=== PATIENT | male | born 1965 | race African-American/Black ===

== ENCOUNTER → 2016-12-14 | Outpatient (CLI) | payer MEDICAID ==
[~2016-12-14] MED LIST: ACET-711 PO; AMLO10TA2 PO; AMOX1TAB64 PO; ASPI-496 PO; DICL75TA2 PO; GLYB5TAB3 PO; INSU100V5 SQ; LISI40TA PO; LORA10TA3 PO; MEGA D3 PO; METH4TAB2 PO; MV M PO; OXYC-302 PO; OXYC10TA6 PO; PANT40TA5 PO; PIOG15TA2 PO; POTA99TA3 PO; POTASSIUM OTC PO; ROSU10TA PO; UBIQ75CA PO; WARF10TA PO
== END | disposition home or self-care (01) ==
LOC: CFH 14:20
PROVIDERS: ATTEND Nurse Practitioner Primary Care
DX: E04.1 Nontoxic single thyroid nodule (principal)
CPT/HCPCS: 76536

== ENCOUNTER → 2018-01-08 | Outpatient (CLI) | payer MEDICAID ==
[~2018-01-08] MED LIST changes: -MV M PO; +MV-M1TAB34 PO; -PIOG15TA2 PO; +PIOG15TA3 PO
== END | disposition home or self-care (01) ==
LOC: CVU 11:03
PROVIDERS: ATTEND Internal Medicine Cardiovascular Disease
DX: I77.812 Thoracoabdominal aortic ectasia (principal); I51.7 Cardiomegaly; Z95.2 Presence of prosthetic heart valve
CPT/HCPCS: 93306

== ENCOUNTER → 2018-01-09 | Outpatient (CLI) | payer MEDICAID ==
[~2018-01-09] MED LIST changes: +REGADENOSON 0.4 MG/5 ML SYRINGE ONE
== END | disposition home or self-care (01) ==
LOC: CFH 12:18
PROVIDERS: ATTEND Internal Medicine Cardiovascular Disease
DX: Z02.9 Encounter for administrative examinations, unspecified (principal)
CPT/HCPCS: J2785

== ENCOUNTER 2018-04-01 23:46 | Emergency (ER) | payer MEDICAID ==
[~2018-04-01] VITALS: Ht 188 cm; Wt 115.0 kg
[~2018-04-01 23:46] MED LIST changes: -PIOG15TA3 PO; +PIOG15TA66 PO; -REGADENOSON 0.4 MG/5 ML SYRINGE ONE
[2018-04-02] MEDS ORDERED: LORazepam 2 MG/ML, 1ML ONE ×2 (00:57→02:08)
[2018-04-02] MEDS ORDERED: LORazepam 2 MG/ML, 1ML IM ONE ×2 (01:00→02:30)
[2018-04-02 02:27] VITALS: BP 158/91
== END 2018-04-02 02:29 | disposition home or self-care (01) ==
LOC: ED 23:59
DX: R11.2 Nausea with vomiting, unspecified (principal); T50.995A Adverse effect of other drugs, medicaments and biological substances, initial encounter; I11.9 Hypertensive heart disease without heart failure; I25.10 Atherosclerotic heart disease of native coronary artery without angina pectoris; E11.9 Type 2 diabetes mellitus without complications; R42 Dizziness and giddiness; Z87.891 Personal history of nicotine dependence; Z85.038 Personal history of other malignant neoplasm of large intestine; Y92.89 Other specified places as the place of occurrence of the external cause
CPT/HCPCS: 93005; 96372; 99285; J2060

== ENCOUNTER 2018-07-03 16:46 | Emergency (ER) | payer MEDICAID ==
[~2018-07-03] VITALS: Ht 190.5 cm; Wt 133.0 kg
[~2018-07-03 16:46] MED LIST changes: -AMLO10TA2 PO; +AMLO10TA6 PO
[2018-07-03 17:03] VITALS: BP 109/75
[2018-07-03] MEDS ORDERED: HYDROcodone/APAP 5/325 TABLET ONE (17:30)
[2018-07-03] MEDS ORDERED: HYDROcodone/APAP 5/325 TABLET PO ONE (17:30)
[2018-07-03] MEDS ORDERED: OXYcodone/APAP 5/325MG TABLET ONE (17:36)
[2018-07-03] MEDS ORDERED: OXYcodone/APAP 5/325MG TABLET PO ONE (18:00)
[2018-07-03] MEDS ORDERED: COLCHICINE 0.6 MG TABLET ONE (18:04)
[2018-07-03] MEDS ORDERED: COLCHICINE 0.6 MG TABLET PO ONE ×2 (18:30)
[2018-07-03 18:47] LABS: INTERNATIONAL NORMALIZED RATIO 5.98 (0.93-1.1)
[2018-07-03] MEDS ORDERED: PHYTONADIONE 5 MG TABLET PO ONE (19:30)
== END 2018-07-03 20:00 | disposition home or self-care (01) ==
LOC: ED 17:43
DX: S80.12XA Contusion of left lower leg, initial encounter (principal); D65 Disseminated intravascular coagulation [defibrination syndrome]; E11.9 Type 2 diabetes mellitus without complications; I10 Essential (primary) hypertension; K21.9 Gastro-esophageal reflux disease without esophagitis; Z87.891 Personal history of nicotine dependence; X58.XXXA Exposure to other specified factors, initial encounter; Y93.89 Activity, other specified; Y99.8 Other external cause status; Y92.89 Other specified places as the place of occurrence of the external cause
CPT/HCPCS: 36415; 85610; 99285

== ENCOUNTER → 2018-08-06 | Outpatient (CLI) | payer MEDICAID ==
[~2018-08-06] MED LIST changes: +REGADENOSON 0.4 MG/5 ML SYRINGE ONE
== END | disposition home or self-care (01) ==
LOC: CFH 12:11
PROVIDERS: ATTEND Internal Medicine Cardiovascular Disease
DX: I25.89 Other forms of chronic ischemic heart disease (principal); E11.9 Type 2 diabetes mellitus without complications
CPT/HCPCS: 78452; 93017; A9502; J2785

== ENCOUNTER → 2019-02-22 | Outpatient (CLI) | payer MEDICAID ==
[~2019-02-22] MED LIST changes: -AMLO10TA6 PO; +AMLO10TA8 PO; -DICL75TA2 PO; +DICL75TA3 PO; +LORA-247 PO; -LORA10TA3 PO; -REGADENOSON 0.4 MG/5 ML SYRINGE ONE; -ROSU10TA PO; +ROSU10TA2 PO
== END | disposition home or self-care (01) ==
LOC: CVU 15:11
PROVIDERS: ATTEND Internal Medicine Cardiovascular Disease
DX: I34.0 Nonrheumatic mitral (valve) insufficiency (principal); I25.10 Atherosclerotic heart disease of native coronary artery without angina pectoris
CPT/HCPCS: 93306

== ENCOUNTER 2019-03-02 09:44 | Inpatient (IN) | payer MEDICAID ==
[~2019-03-02] VITALS: Ht 190.5 cm; Wt 133.8 kg
[2019-03-02] MEDS ORDERED: SODIUM CHLORIDE FLUSH 10ML SYR IVF ONE ×2 (10:30→11:30)
--- NOTE | 2019-03-02 10:40 | NUR ---
ER RN: PT TO ROOM FROM LOBBY VIA W/C
[2019-03-02 10:56] LABS: BASOPHILS # (AUTO) 0.04 x10^3/uL (0-0.1); BASOPHILS % (AUTO) 0 % (0-1); EOSINOPHILS # (AUTO) 0.22 x10^3/uL (0-0.4); EOSINOPHILS % (AUTO) 3 % (1-7); LYMPHOCYTES % (AUTO) 20 % (22-44); MD NO; MEAN CORPUSCULAR HEMOGLOBIN 30.4 pg (27.5-34.5); MEAN CORPUSCULAR HGB CONC 33.3 g/dL (33.2-36.2); MEAN CORPUSCULAR VOLUME 91.2 fL (81-97); MEAN PLATELET VOLUME 7.5 fL (7.4-10.4); MONOCYTES # (AUTO) 0.67 x10^3/uL (0.2-0.8); MONOCYTES % (AUTO) 8 % (2-9); NEUTROPHILS # (AUTO) 5.96 x10^3/uL (1.8-6.8); NEUTROPHILS % (AUTO) 69 % (42-75); PLATELET COUNT 240 x10^3/uL (130-400); RED BLOOD COUNT 4.44 x10^6/uL (4.38-5.82); RED CELL DISTRIBUTION WIDTH 16.4 % (9.4-14.8)
[2019-03-02 11:05] LABS: INTERNATIONAL NORMALIZED RATIO 1.28 (0.93-1.1); PROTHROMBIN TIME 13.3 Seconds (9.6-11.5)
[2019-03-02 11:06] LABS: ALBUMIN 3.5 g/dL (3.4-5.0); ANION GAP 5 mmol/L (5-15); CALCIUM 8.9 mg/dL (8.5-10.1); CHLORIDE 105 mmol/L (98-107); CREATININE 1.04 mg/dL (0.7-1.3)
[2019-03-02 11:12] LABS: ALANINE AMINOTRANSFERASE 55 U/L (12-78); ALKALINE PHOSPHATASE 146 U/L (45-117); BILIRUBIN,TOTAL 1.1 mg/dL (0.2-1.0); TOTAL PROTEIN 7.4 g/dL (6.4-8.2)
--- NOTE | 2019-03-02 11:20 | NUR ---
PT C/O RUQ PAIN "FOR A WHILE NOW" THAT COMES AND GOES, INCREASES WITH MEALS. GENERALIZED ABDOMINAL TENDERNESS. RESPIRATIONS EVEN AND UNLABORED ON RA, SIDE RAIL UP, CALL LIGHT IN REACH. AT BEDSIDE.
[2019-03-02] MEDS ORDERED: ONDANSETRON 2MG/ML, 2ML IVPush ONE (11:30)
[2019-03-02] MEDS ORDERED: MORPHINE SULFATE 4 MG/ML, 1ML IVPush PRN (11:30)
[2019-03-02] MEDS ORDERED: ONDANSETRON 2MG/ML, 2ML ONE (11:48)
[2019-03-02] MEDS ORDERED: MORPHINE SULFATE 4 MG/ML, 1ML ONE (11:48)
[2019-03-02 11:55] LABS: TROPONIN I < 0.015 ng/mL (0.000-0.045)
[2019-03-02] MEDS ORDERED: INDO50CA5 PO (11:59)
[2019-03-02] MEDS ORDERED: INSU100I34 SQ (11:59)
[2019-03-02] MEDS ORDERED: DOCU-186 PO (11:59)
[2019-03-02] MEDS ORDERED: FEBU40TA PO (11:59)
[2019-03-02] MEDS ORDERED: INSU100I42 SQ (11:59)
--- NOTE | 2019-03-02 12:05 | NUR ---
PT REMINDED OF NPO STATUS. LAST ORAL INTAKE: WATER TODAY, SOUP YESTERDAY. MONITOR EQUIPMENT ON, CALL LIGHT W/IN REACH, SPOUSE & DAUGHTER IN ROOM. NO ADDITIONAL NEEDS, AT THIS TIME.
[2019-03-02] MEDS ORDERED: HYDROmorphone 2 MG/ML, 1ML ONE (13:19)
[2019-03-02] MEDS ORDERED: ENOXAPARIN 30 MG/0.3 ML SQ SCH (13:30)
[2019-03-02] MEDS ORDERED: ENALAPRILAT 1.25 MG/ML, 2ML IVPush PRN (13:30)
--- NOTE | 2019-03-02 13:33 | NUR ---
PT REPORT TO STEPHANIE HERNANDEZ COVERING ROOM 371
[2019-03-02] MEDS ORDERED: HYDROmorphone 2 MG/ML, 1ML IV ONE (14:00)
[2019-03-02] MEDS: HYDROmorphone 2 MG/ML, 1ML IVPush PRN ×3 (14:26→21:55)
[2019-03-02] MEDS ORDERED: ENOXAPARIN 100 MG/ML SQ SCH (14:30)
[2019-03-02] MEDS: D5%-0.45NACL+KCL 20MEQ 1,000 ML IV SCH ×2 (16:00→23:58)
[2019-03-02] MEDS: KETOROLAC 30 MG/1 ML IV PRN (16:25)
[2019-03-02 16:30] VITALS: BP 113/78
[2019-03-02 18:56] VITALS: BP 118/73
[2019-03-02] MEDS: ENOXAPARIN 100 MG/ML SQ SCH (21:08)
[2019-03-02] MEDS: ENOXAPARIN 40 MG/0.4 ML SQ SCH (21:15)
[2019-03-02] MEDS: INSULIN LISPRO 100 UNITS/ML, PEN SQ-INSULIN SCH (21:56)
[2019-03-03] MEDS: HYDROmorphone 2 MG/ML, 1ML IVPush PRN ×7 (01:00→21:04)
[2019-03-03 02:36] VITALS: BP 106/68
[2019-03-03 05:17] LABS: BASOPHILS # (AUTO) 0.04 x10^3/uL (0-0.1); BASOPHILS % (AUTO) 1 % (0-1); EOSINOPHILS # (AUTO) 0.18 x10^3/uL (0-0.4); EOSINOPHILS % (AUTO) 2 % (1-7); LYMPHOCYTES # (AUTO) 1.66 x10^3/uL (1-3.4); LYMPHOCYTES % (AUTO) 20 % (22-44); MD NO; MEAN CORPUSCULAR HGB CONC 32.8 g/dL (33.2-36.2); MEAN CORPUSCULAR VOLUME 91.5 fL (81-97); MEAN PLATELET VOLUME 7.7 fL (7.4-10.4); MONOCYTES # (AUTO) 0.66 x10^3/uL (0.2-0.8); MONOCYTES % (AUTO) 8 % (2-9); NEUTROPHILS # (AUTO) 5.98 x10^3/uL (1.8-6.8); NEUTROPHILS % (AUTO) 70 % (42-75); PLATELET COUNT 239 x10^3/uL (130-400); RED BLOOD COUNT 4.38 x10^6/uL (4.38-5.82); RED CELL DISTRIBUTION WIDTH 16.6 % (9.4-14.8)
[2019-03-03 05:29] LABS: ANION GAP 6 mmol/L (5-15); CALCIUM 9.1 mg/dL (8.5-10.1); CHLORIDE 101 mmol/L (98-107)
[2019-03-03 05:31] LABS: CREATININE 2.18 mg/dL (0.7-1.3)
[2019-03-03 07:08] VITALS: BP 130/82
[2019-03-03] MEDS: INSULIN LISPRO 100 UNITS/ML, PEN SQ-INSULIN SCH ×4 (08:30→21:05)
[2019-03-03] MEDS: D5%-0.45NACL+KCL 20MEQ 1,000 ML IV SCH ×2 (08:31→16:24)
[2019-03-03] MEDS: ENOXAPARIN 40 MG/0.4 ML SQ SCH (09:00)
[2019-03-03] MEDS: ENOXAPARIN 100 MG/ML SQ SCH (11:59)
[2019-03-03 13:09] VITALS: BP 117/76
[2019-03-03] MEDS ORDERED: COLCHICINE 0.6 MG TABLET PO ONE ×2 (18:30→19:30)
[2019-03-03 19:35] VITALS: BP 115/69
[2019-03-04] MEDS: HYDROmorphone 2 MG/ML, 1ML IVPush PRN ×8 (00:02→22:18)
[2019-03-04] MEDS: ENOXAPARIN 100 MG/ML SQ SCH ×2 (00:02→12:08)
[2019-03-04] MEDS: D5%-0.45NACL+KCL 20MEQ 1,000 ML IV SCH (00:03)
[2019-03-04 01:27] VITALS: BP 107/71
[2019-03-04 06:16] LABS: ALBUMIN 3.6 g/dL (3.4-5.0); ANION GAP 8 mmol/L (5-15); CALCIUM 9.1 mg/dL (8.5-10.1); CHLORIDE 105 mmol/L (98-107)
[2019-03-04 06:17] LABS: CREATININE 1.31 mg/dL (0.7-1.3)
[2019-03-04 07:34] VITALS: BP 126/85
[2019-03-04] MEDS ORDERED: WARFARIN MECH. VALVE PROTOCOL 2.5 to 3.5 XX PRN (08:00)
[2019-03-04 08:52] LABS: INTERNATIONAL NORMALIZED RATIO 1.05 (0.93-1.1)
[2019-03-04] MEDS: INSULIN LISPRO 100 UNITS/ML, PEN SQ-INSULIN SCH ×4 (09:11→20:39)
[2019-03-04] MEDS: LACTATED RINGERS 1,000 ML IV SCH ×2 (09:11→15:47)
[2019-03-04] MEDS: ENOXAPARIN 40 MG/0.4 ML SQ SCH ×2 (12:08)
[2019-03-04 12:49] VITALS: BP 112/78
[2019-03-04] MEDS ORDERED: ALBUTEROL/IPRATROPIUM 2.5MG/0.5MG, 3 ML ONE (14:24)
[2019-03-04] MEDS ORDERED: ALBUTEROL SULFATE 2.5 MG/3 ML NPPB PRN (14:30)
[2019-03-04] MEDS ORDERED: ALBUTEROL/IPRATROPIUM 2.5MG/0.5MG, 3 ML NEB ONE (14:30)
[2019-03-04] MEDS ORDERED: WARFARIN 7.5 MG TABLET PO-COUM ONE (18:00)
[2019-03-04 19:00] VITALS: BP 122/75
[2019-03-04] MEDS ORDERED: COLCHICINE 0.6 MG TABLET PO ONE (23:00)
[2019-03-05] MEDS ORDERED: COLCHICINE 0.6 MG TABLET PO ONE
[2019-03-05] MEDS: ENOXAPARIN 40 MG/0.4 ML SQ SCH ×2 (00:28→12:00)
[2019-03-05] MEDS: LACTATED RINGERS 1,000 ML IV SCH ×4 (00:30→20:56)
[2019-03-05] MEDS: ENOXAPARIN 100 MG/ML SQ SCH ×3 (00:30→23:43)
[2019-03-05 01:22] VITALS: BP 164/100
[2019-03-05] MEDS: HYDROmorphone 2 MG/ML, 1ML IVPush PRN ×8 (01:37→23:42)
[2019-03-05 05:11] LABS: INTERNATIONAL NORMALIZED RATIO 0.99 (0.93-1.1); PROTHROMBIN TIME 10.4 Seconds (9.6-11.5)
[2019-03-05 05:31] LABS: ALBUMIN 3.4 g/dL (3.4-5.0); ANION GAP 7 mmol/L (5-15); CALCIUM 9.5 mg/dL (8.5-10.1); CHLORIDE 104 mmol/L (98-107)
[2019-03-05 05:33] LABS: ALANINE AMINOTRANSFERASE 69 U/L (12-78); ALKALINE PHOSPHATASE 202 U/L (45-117); BILIRUBIN,TOTAL 0.7 mg/dL (0.2-1.0); CREATININE 0.98 mg/dL (0.7-1.3); TOTAL PROTEIN 7.4 g/dL (6.4-8.2)
[2019-03-05 06:26] LABS: BASOPHILS # (AUTO) 0.04 x10^3/uL (0-0.1); BASOPHILS % (AUTO) 1 % (0-1); EOSINOPHILS # (AUTO) 0.17 x10^3/uL (0-0.4); EOSINOPHILS % (AUTO) 3 % (1-7); LYMPHOCYTES # (AUTO) 1.76 x10^3/uL (1-3.4); LYMPHOCYTES % (AUTO) 28 % (22-44); MD NO; MEAN CORPUSCULAR HEMOGLOBIN 29.5 pg (27.5-34.5); MEAN CORPUSCULAR HGB CONC 32.6 g/dL (33.2-36.2); MEAN CORPUSCULAR VOLUME 90.3 fL (81-97); MONOCYTES # (AUTO) 0.71 x10^3/uL (0.2-0.8); MONOCYTES % (AUTO) 11 % (2-9); NEUTROPHILS # (AUTO) 3.61 x10^3/uL (1.8-6.8); NEUTROPHILS % (AUTO) 57 % (42-75); PLATELET COUNT 199 x10^3/uL (130-400); RED CELL DISTRIBUTION WIDTH 15.8 % (9.4-14.8)
[2019-03-05 07:28] VITALS: BP 138/86
[2019-03-05] MEDS: INSULIN LISPRO 100 UNITS/ML, PEN SQ-INSULIN SCH ×4 (08:06→21:06)
[2019-03-05 12:39] VITALS: BP 150/90
[2019-03-05] MEDS ORDERED: OMNIPAQUE 350 MG/ML, 100ML BOTTLE ONE (16:49)
[2019-03-05] MEDS ORDERED: WARFARIN 7.5 MG TABLET PO-COUM ONE ×2 (18:00)
[2019-03-05 19:40] VITALS: BP 146/83
[2019-03-06] MEDS: ENOXAPARIN 40 MG/0.4 ML SQ SCH
[2019-03-06] MEDS: LACTATED RINGERS 1,000 ML IV SCH ×2 (02:40→11:34)
[2019-03-06] MEDS: HYDROmorphone 2 MG/ML, 1ML IVPush PRN ×3 (02:48→09:40)
[2019-03-06 03:07] VITALS: BP 137/78
[2019-03-06 05:52] LABS: BASOPHILS # (AUTO) 0.04 x10^3/uL (0-0.1); BASOPHILS % (AUTO) 1 % (0-1); EOSINOPHILS # (AUTO) 0.24 x10^3/uL (0-0.4); EOSINOPHILS % (AUTO) 5 % (1-7); LYMPHOCYTES # (AUTO) 1.74 x10^3/uL (1-3.4); LYMPHOCYTES % (AUTO) 34 % (22-44); MD NO; MEAN CORPUSCULAR HGB CONC 32.6 g/dL (33.2-36.2); MEAN CORPUSCULAR VOLUME 91.8 fL (81-97); MEAN PLATELET VOLUME 8.1 fL (7.4-10.4); MONOCYTES # (AUTO) 0.64 x10^3/uL (0.2-0.8); MONOCYTES % (AUTO) 13 % (2-9); NEUTROPHILS # (AUTO) 2.45 x10^3/uL (1.8-6.8); NEUTROPHILS % (AUTO) 48 % (42-75); PLATELET COUNT 188 x10^3/uL (130-400); RED BLOOD COUNT 3.97 x10^6/uL (4.38-5.82); RED CELL DISTRIBUTION WIDTH 16.3 % (9.4-14.8)
[2019-03-06 06:00] LABS: INTERNATIONAL NORMALIZED RATIO 1.1 (0.93-1.1); PROTHROMBIN TIME 11.5 Seconds (9.6-11.5)
[2019-03-06 06:05] LABS: ALBUMIN 3.3 g/dL (3.4-5.0); ANION GAP 9 mmol/L (5-15); CALCIUM 9.5 mg/dL (8.5-10.1); CHLORIDE 105 mmol/L (98-107)
[2019-03-06 06:10] LABS: ALANINE AMINOTRANSFERASE 86 U/L (12-78); ALKALINE PHOSPHATASE 190 U/L (45-117); BILIRUBIN,TOTAL 0.6 mg/dL (0.2-1.0); CREATININE 0.89 mg/dL (0.7-1.3); TOTAL PROTEIN 7.1 g/dL (6.4-8.2)
[2019-03-06] MEDS ORDERED: MAGNESIUM SULFATE PMX 2GM/50ML 50 ML IV ONE (07:30)
[2019-03-06 08:17] VITALS: BP 160/64
[2019-03-06] MEDS: KETOROLAC 30 MG/1 ML IV PRN (08:29)
[2019-03-06] MEDS: INSULIN LISPRO 100 UNITS/ML, PEN SQ-INSULIN SCH (08:30)
[2019-03-06] MEDS ORDERED: FEBUXOSTAT 40 MG TABLET PO SCH (14:00)
[2019-03-06] MEDS ORDERED: OXYcodone/APAP 10/325MG TABLET PO PRN (14:00)
[2019-03-06] MEDS ORDERED: WARFARIN 7.5 MG TABLET PO-COUM ONE (18:00)
== END 2019-03-06 15:22 | disposition left against medical advice (07) | DRG 440 ==
LOC: ED 10:59 → EDIP 13:06 → 3NE 13:50
PROVIDERS: ADMIT Internal Medicine; ATTEND Internal Medicine
DX: K85.20 Alcohol induced acute pancreatitis without necrosis or infection (principal); D64.9 Anemia, unspecified; Z53.21 Procedure and treatment not carried out due to patient leaving prior to being seen by health care provider; E11.65 Type 2 diabetes mellitus with hyperglycemia; M19.90 Unspecified osteoarthritis, unspecified site; M10.9 Gout, unspecified; I10 Essential (primary) hypertension; I25.10 Atherosclerotic heart disease of native coronary artery without angina pectoris; K21.9 Gastro-esophageal reflux disease without esophagitis; K59.00 Constipation, unspecified; Z85.038 Personal history of other malignant neoplasm of large intestine; Z87.891 Personal history of nicotine dependence; Z95.2 Presence of prosthetic heart valve
CPT/HCPCS: 36415; 99285; J7620; 71045; 74177; 76700; 80048; 80053; 80069; 82962; 83690; 83735; 84100; 84478; 84484; 85025; 85610; 85730; 93005; 94640; 96374; 96375; G0378; J1170; J1650; J1885; J2405; Q9967; J1815; J2270; J3475; J3480; J7120

== ENCOUNTER 2019-03-15 11:20 | Day surgery (SDC) | payer MEDICAID ==
[~2019-03-15] VITALS: Ht 190.5 cm; Wt 127.3 kg
[~2019-03-15 11:20] MED LIST changes: +DOCU-186 PO; +FEBU40TA PO; +INDO50CA5 PO; +INSU100I34 SQ; +INSU100I42 SQ; +NITR0.4T28 SL; +WARF10TA43 PO
[2019-03-15 13:04] VITALS: BP 128/87
[2019-03-15] MEDS ORDERED: VERAPAMIL 2.5 MG/ML, 2ML ONE (13:43)
[2019-03-15] MEDS ORDERED: MIDAZOLAM 1 MG/ML, 5ML ONE (13:43)
[2019-03-15] MEDS ORDERED: LIDOCAINE 2%, 20ML ONE (13:43)
[2019-03-15] MEDS ORDERED: HEPARIN 1,000 UNITS/ML, 10ML ONE (13:43)
[2019-03-15] MEDS ORDERED: FENTANYL PF 100 MCG/2ML ONE (13:43)
[2019-03-15 13:51] LABS: ANION GAP 7 mmol/L (5-15); CALCIUM 8.9 mg/dL (8.5-10.1); CHLORIDE 107 mmol/L (98-107); CREATININE 0.91 mg/dL (0.7-1.3)
[2019-03-15 13:51] LABS: INTERNATIONAL NORMALIZED RATIO 2.44 (0.93-1.1); PROTHROMBIN TIME 24.8 Seconds (9.6-11.5)
== END 2019-03-15 16:13 | disposition home or self-care (01) ==
LOC: CACL 11:20
PROVIDERS: ATTEND Internal Medicine Cardiovascular Disease
DX: I25.10 Atherosclerotic heart disease of native coronary artery without angina pectoris (principal); I35.0 Nonrheumatic aortic (valve) stenosis; I10 Essential (primary) hypertension; E11.9 Type 2 diabetes mellitus without complications; E78.2 Mixed hyperlipidemia; G47.33 Obstructive sleep apnea (adult) (pediatric); M10.9 Gout, unspecified; J45.909 Unspecified asthma, uncomplicated; E66.9 Obesity, unspecified; Z68.35 Body mass index [BMI] 35.0-35.9, adult; Z79.01 Long term (current) use of anticoagulants; Z79.82 Long term (current) use of aspirin; Z79.899 Other long term (current) drug therapy; Z88.8 Allergy status to other drugs, medicaments and biological substances; Z95.2 Presence of prosthetic heart valve; Z95.5 Presence of coronary angioplasty implant and graft; Z82.49 Family history of ischemic heart disease and other diseases of the circulatory system
CPT/HCPCS: 36415; 80048; 85610; 85730; 93454; 99156; 99157; C1769; C1887; C1894; J2250; J3010; Q9967; J1644

== ENCOUNTER 2019-08-18 07:39 | Inpatient (IN) | payer MEDICAID ==
[~2019-08-18] VITALS: Ht 190.5 cm; Wt 148.0 kg
[~2019-08-18 07:39] MED LIST changes: +INDO50CA15 PO; -INDO50CA5 PO
--- NOTE | 2019-08-18 08:11 | NUR ---
FIRST CONTACT WITH PT. PT C/O CP/SOB, was supposed to have valve replaced, x1 days. PT'S AOX4. RESPS EVEN AND UNLABORED. ALL MONITORS IN PLACE. CALL LIGHT WITHIN REACH. NSR RATE 70-80'S ON DYEING MACHINE TENDER AT THIS TIME. AT BEDSIDE. EKG DONE AT BEDSIDE BY EMT. MD AT BEDSIDE TO EVALUATE AT THIS TIME.
[2019-08-18 08:19] LABS: INTERNATIONAL NORMALIZED RATIO 1.75 (0.93-1.1)
[2019-08-18 08:21] LABS: ALANINE AMINOTRANSFERASE 30 U/L (12-78); ALBUMIN 3.4 g/dL (3.4-5.0); ANION GAP 6 mmol/L (5-15); CALCIUM 8.6 mg/dL (8.5-10.1); CHLORIDE 108 mmol/L (98-107)
[2019-08-18 08:26] LABS: ALKALINE PHOSPHATASE 98 U/L (45-117); BILIRUBIN,TOTAL 0.4 mg/dL (0.2-1.0)
[2019-08-18 08:29] LABS: TROPONIN I 0.185 ng/mL (0.000-0.045)
[2019-08-18 08:30] LABS: MEAN CORPUSCULAR HEMOGLOBIN 29.4 pg (27.5-34.5); MEAN CORPUSCULAR HGB CONC 32.5 g/dL (33.2-36.2); MEAN CORPUSCULAR VOLUME 90.2 fL (81-97); MEAN PLATELET VOLUME 8.1 fL (7.4-10.4); PLATELET COUNT 244 x10^3/uL (130-400); RED BLOOD COUNT 4.37 x10^6/uL (4.38-5.82)
[2019-08-18 08:38] LABS: BASOPHILS # (AUTO) 0.03 x10^3/uL (0-0.1); BASOPHILS % (AUTO) 0 % (0-1); EOSINOPHILS # (AUTO) 0.18 x10^3/uL (0-0.4); EOSINOPHILS % (AUTO) 3 % (1-7); LYMPHOCYTES # (AUTO) 1.67 x10^3/uL (1-3.4); LYMPHOCYTES % (AUTO) 24 % (22-44); MD SCAN; MONOCYTES # (AUTO) 0.62 x10^3/uL (0.2-0.8); MONOCYTES % (AUTO) 9 % (2-9); NEUTROPHILS % (AUTO) 65 % (42-75)
[2019-08-18] MEDS ORDERED: ASPIRIN 81 MG TABLET CHEW ONE (08:43)
[2019-08-18] MEDS ORDERED: HYDROmorphone 1 MG/ML, 1ML INJ ONE (08:58)
[2019-08-18] MEDS ORDERED: ONDANSETRON 2MG/ML, 2ML ONE (08:58)
[2019-08-18] MEDS ORDERED: HYDROmorphone 2 MG/ML, 1ML IVPush PRN (09:00)
[2019-08-18] MEDS ORDERED: ASPIRIN 81 MG TABLET CHEW PO ONE (09:00)
[2019-08-18] MEDS ORDERED: ONDANSETRON 2MG/ML, 2ML IVPush ONE (09:00)
--- NOTE | 2019-08-18 09:09 | NUR ---
PT MEDICATED PER EMAR. PT TOLERATED WELL. PT'S AOX4. RESPS EVEN AND UNLABORED.
--- NOTE | 2019-08-18 10:05 | NUR ---
report given to thalia isaac. all questions answered.
[2019-08-18] MEDS ORDERED: NITROGLYCERIN SINGLE TAB 0.4 MG SL PRN (11:00)
[2019-08-18] MEDS ORDERED: hydrALAzine 20 MG/ML, 1ML IVPush PRN (11:00)
[2019-08-18] MEDS ORDERED: ONDANSETRON 2MG/ML, 2ML IVPush PRN (11:00)
[2019-08-18 11:04] VITALS: BP 121/88
[2019-08-18] MEDS: WARFARIN MECH. VALVE PROTOCOL 2.5 to 3.5 XX SCH (11:34)
[2019-08-18 11:36] LABS: TROPONIN I 0.162 ng/mL (0.000-0.045)
[2019-08-18] MEDS ORDERED: NITROGLYCERIN 0.4 MG BOTTLE (25 TABS) SL PRN (12:00)
[2019-08-18] MEDS ORDERED: MORPHINE SULFATE 4 MG/ML, 1ML ONE (12:21)
[2019-08-18] MEDS: ENOXAPARIN 150 MG/ML SQ SCH ×2 (12:24→23:42)
[2019-08-18] MEDS ORDERED: MORPHINE SULFATE 4 MG/ML, 1ML IVPush ONE (12:30)
[2019-08-18 13:11] LABS: HEMOGLOBIN A1C 9.4 % (4.2-6.3)
[2019-08-18 14:34] VITALS: BP 116/80
[2019-08-18 17:17] LABS: TROPONIN I 0.139 ng/mL (0.000-0.045)
[2019-08-18] MEDS: INSULIN LISPRO 100 UNITS/ML, PEN SQ-INSULIN SCH ×2 (17:36→21:24)
[2019-08-18] MEDS ORDERED: WARFARIN 10 MG TABLET PO-COUM ONE (18:00)
[2019-08-18 18:43] VITALS: BP 127/84
[2019-08-18] MEDS: ATORVASTATIN 40 MG TABLET PO SCH (21:11)
[2019-08-19 01:26] VITALS: BP 122/89
[2019-08-19 05:45] LABS: INTERNATIONAL NORMALIZED RATIO 1.49 (0.93-1.1); PROTHROMBIN TIME 15.4 Seconds (9.6-11.5)
[2019-08-19 07:35] VITALS: BP 106/80
[2019-08-19] MEDS: AMLODIPINE 10 MG TAB PO SCH (08:52)
[2019-08-19] MEDS: LISINOPRIL 40 MG TABLET PO SCH (08:52)
[2019-08-19] MEDS: FEBUXOSTAT 40 MG TABLET PO SCH (08:52)
[2019-08-19] MEDS: PANTOPROZOLE 40MG TABLET PO SCH (08:52)
[2019-08-19] MEDS: INSULIN LISPRO 100 UNITS/ML, PEN SQ-INSULIN SCH ×4 (08:53→20:37)
[2019-08-19] MEDS: SENNA/DOCUSATE TABLET PO SCH (08:53)
[2019-08-19] MEDS: ASPIRIN 81 MG TABLET EC PO SCH (08:54)
[2019-08-19] MEDS: WARFARIN MECH. VALVE PROTOCOL 2.5 to 3.5 XX SCH (08:57)
[2019-08-19] MEDS ORDERED: INSULIN GLARGINE 100 UNITS/ML, PEN SQ-INSULIN SCH (09:00)
[2019-08-19] MEDS: ENOXAPARIN 150 MG/ML SQ SCH (12:40)
[2019-08-19] MEDS ORDERED: OMNIPAQUE 350 MG/ML, 100ML BOTTLE ONE (13:49)
[2019-08-19 13:58] VITALS: BP 112/85
[2019-08-19] MEDS ORDERED: WARFARIN 2 MG TABLET PO-COUM ONE (18:00)
[2019-08-19] MEDS ORDERED: WARFARIN 10 MG TABLET PO-COUM ONE (18:00)
[2019-08-19 18:59] VITALS: BP 129/84
[2019-08-19] MEDS: ATORVASTATIN 40 MG TABLET PO SCH (20:36)
[2019-08-20] MEDS: ENOXAPARIN 150 MG/ML SQ SCH ×3 (00:26→23:08)
[2019-08-20 00:51] VITALS: BP 123/84
[2019-08-20 05:35] LABS: INTERNATIONAL NORMALIZED RATIO 1.74 (0.93-1.1); PROTHROMBIN TIME 17.9 Seconds (9.6-11.5)
[2019-08-20 05:41] LABS: ALANINE AMINOTRANSFERASE 26 U/L (12-78); ALBUMIN 3.2 g/dL (3.4-5.0); ANION GAP 7 mmol/L (5-15); CALCIUM 9.2 mg/dL (8.5-10.1); CHLORIDE 107 mmol/L (98-107); CREATININE 0.97 mg/dL (0.7-1.3)
[2019-08-20 05:42] LABS: ALKALINE PHOSPHATASE 99 U/L (45-117); BILIRUBIN,TOTAL 0.4 mg/dL (0.2-1.0); TOTAL PROTEIN 6.7 g/dL (6.4-8.2)
[2019-08-20 07:13] VITALS: BP 125/84
[2019-08-20] MEDS: ASPIRIN 81 MG TABLET EC PO SCH (08:36)
[2019-08-20] MEDS: AMLODIPINE 10 MG TAB PO SCH (08:36)
[2019-08-20] MEDS: FEBUXOSTAT 40 MG TABLET PO SCH (08:36)
[2019-08-20] MEDS: PANTOPROZOLE 40MG TABLET PO SCH (08:36)
[2019-08-20] MEDS: SENNA/DOCUSATE TABLET PO SCH (08:36)
[2019-08-20] MEDS: LISINOPRIL 40 MG TABLET PO SCH (08:37)
[2019-08-20] MEDS: INSULIN LISPRO 100 UNITS/ML, PEN SQ-INSULIN SCH ×4 (08:38→20:22)
[2019-08-20 08:40] LABS: TROPONIN I 0.156 ng/mL (0.000-0.045)
[2019-08-20] MEDS ORDERED: FUROSEMIDE 20 MG/2 ML ONE (08:44)
[2019-08-20] MEDS: FUROSEMIDE 20 MG/2 ML IV SCH ×2 (08:48→16:31)
[2019-08-20] MEDS: WARFARIN MECH. VALVE PROTOCOL 2.5 to 3.5 XX SCH (08:48)
[2019-08-20] MEDS ORDERED: INSULIN GLARGINE 100 UNITS/ML, PEN SQ-INSULIN SCH (09:00)
[2019-08-20] MEDS ORDERED: BUSPIRONE 5 MG TABLET PO SCH (09:00)
[2019-08-20 12:56] VITALS: BP 119/81
[2019-08-20] MEDS ORDERED: LORazepam 0.5MG TABLET PO PRN (15:00)
[2019-08-20] MEDS ORDERED: FUROSEMIDE 20 MG/2 ML IV ONE (17:00)
[2019-08-20] MEDS ORDERED: WARFARIN 10 MG TABLET PO-COUM ONE (18:00)
[2019-08-20] MEDS ORDERED: WARFARIN 2 MG TABLET PO-COUM ONE (18:00)
[2019-08-20 18:44] VITALS: BP 104/73
[2019-08-20] MEDS: ATORVASTATIN 40 MG TABLET PO SCH (21:33)
[2019-08-21 00:11] VITALS: BP 121/80
[2019-08-21 06:18] LABS: INTERNATIONAL NORMALIZED RATIO 1.78 (0.93-1.1); PROTHROMBIN TIME 18.3 Seconds (9.6-11.5)
[2019-08-21 06:22] LABS: CHLORIDE 106 mmol/L (98-107)
[2019-08-21 06:38] LABS: ALANINE AMINOTRANSFERASE 33 U/L (12-78); ALBUMIN 3.2 g/dL (3.4-5.0); ALKALINE PHOSPHATASE 111 U/L (45-117); ANION GAP 7 mmol/L (5-15); BILIRUBIN,TOTAL 0.5 mg/dL (0.2-1.0); CALCIUM 9.1 mg/dL (8.5-10.1); TOTAL PROTEIN 6.7 g/dL (6.4-8.2)
[2019-08-21 07:07] VITALS: BP 111/71
[2019-08-21] MEDS: FUROSEMIDE 20 MG/2 ML IV SCH (08:28)
[2019-08-21] MEDS: INSULIN LISPRO 100 UNITS/ML, PEN SQ-INSULIN SCH ×2 (08:30→12:13)
[2019-08-21] MEDS: PANTOPROZOLE 40MG TABLET PO SCH (08:32)
[2019-08-21] MEDS: LISINOPRIL 40 MG TABLET PO SCH (08:32)
[2019-08-21] MEDS: AMLODIPINE 10 MG TAB PO SCH (08:32)
[2019-08-21] MEDS: ASPIRIN 81 MG TABLET EC PO SCH (08:32)
[2019-08-21] MEDS: WARFARIN MECH. VALVE PROTOCOL 2.5 to 3.5 XX SCH (08:33)
[2019-08-21] MEDS: FEBUXOSTAT 40 MG TABLET PO SCH (08:33)
[2019-08-21] MEDS: SENNA/DOCUSATE TABLET PO SCH (08:33)
[2019-08-21] MEDS ORDERED: INSULIN GLARGINE 100 UNITS/ML, PEN SQ-INSULIN SCH (09:00)
[2019-08-21] MEDS ORDERED: INSU100I11 SQ-INSULIN (10:49)
[2019-08-21] MEDS ORDERED: POTA10TA5 PO (10:49)
[2019-08-21] MEDS ORDERED: FURO40TA6 PO (10:49)
[2019-08-21] MEDS: ENOXAPARIN 150 MG/ML SQ SCH (12:10)
[2019-08-21] MEDS ORDERED: WARFARIN 7.5 MG TABLET PO-COUM ONE (18:00)
[2019-08-22] MEDS ORDERED: FUROSEMIDE 40 MG TABLET PO SCH (09:00)
== END 2019-08-21 13:38 | disposition home or self-care (01) | DRG 311 ==
LOC: ED 08:43 → EDIP 08:52 → 5SO 10:09 → DCLOUNGE 08-21 13:14
PROVIDERS: ADMIT Hospitalist; ATTEND Internal Medicine
DX: I24.8 Other forms of acute ischemic heart disease (principal); J96.01 Acute respiratory failure with hypoxia; E46 Unspecified protein-calorie malnutrition; Z68.41 Body mass index [BMI] 40.0-44.9, adult; D17.9 Benign lipomatous neoplasm, unspecified; E11.9 Type 2 diabetes mellitus without complications; E66.01 Morbid (severe) obesity due to excess calories; Z88.8 Allergy status to other drugs, medicaments and biological substances; E78.5 Hyperlipidemia, unspecified; G47.33 Obstructive sleep apnea (adult) (pediatric); I11.0 Hypertensive heart disease with heart failure; I25.10 Atherosclerotic heart disease of native coronary artery without angina pectoris; I50.9 Heart failure, unspecified; I77.810 Thoracic aortic ectasia; J45.909 Unspecified asthma, uncomplicated; K21.9 Gastro-esophageal reflux disease without esophagitis; M19.90 Unspecified osteoarthritis, unspecified site; Z79.01 Long term (current) use of anticoagulants; Z79.4 Long term (current) use of insulin; Z85.038 Personal history of other malignant neoplasm of large intestine; Z87.891 Personal history of nicotine dependence
CPT/HCPCS: 36415; 36600; 71046; 71275; 80053; 82962; 83735; 83880; 84484; 85610; 96374; 96375; G0378; J1170; J1650; J2405; Q9967; J1815; J1940; J2270

== ENCOUNTER 2019-09-06 04:31 | Inpatient (IN) | payer MEDICAID ==
[2019-09-05 14:45] LABS: MICROSCOPIC NOT IND
[2019-09-05 14:52] LABS: BASOPHILS # (AUTO) 0.05 x10^3/uL (0-0.1); BASOPHILS % (AUTO) 1 % (0-1); EOSINOPHILS # (AUTO) 0.15 x10^3/uL (0-0.4); EOSINOPHILS % (AUTO) 2 % (1-7); LYMPHOCYTES # (AUTO) 1.92 x10^3/uL (1-3.4); LYMPHOCYTES % (AUTO) 26 % (22-44); MD NO; MEAN CORPUSCULAR HEMOGLOBIN 28.7 pg (27.5-34.5); MEAN CORPUSCULAR HGB CONC 32.5 g/dL (33.2-36.2); MEAN CORPUSCULAR VOLUME 88.4 fL (81-97); MEAN PLATELET VOLUME 8.1 fL (7.4-10.4); MONOCYTES # (AUTO) 0.71 x10^3/uL (0.2-0.8); MONOCYTES % (AUTO) 10 % (2-9); NEUTROPHILS # (AUTO) 4.47 x10^3/uL (1.8-6.8); NEUTROPHILS % (AUTO) 61 % (42-75); PLATELET COUNT 306 x10^3/uL (130-400); RED BLOOD COUNT 4.39 x10^6/uL (4.38-5.82); RED CELL DISTRIBUTION WIDTH 14.9 % (9.4-14.8)
[2019-09-05 15:00] LABS: ALANINE AMINOTRANSFERASE 26 U/L (12-78); ALBUMIN 3.7 g/dL (3.4-5.0); ANION GAP 7 mmol/L (5-15); CALCIUM 9.2 mg/dL (8.5-10.1); CHLORIDE 105 mmol/L (98-107); CREATININE 1.28 mg/dL (0.7-1.3)
[2019-09-05 15:02] LABS: ALKALINE PHOSPHATASE 104 U/L (45-117); BILIRUBIN,TOTAL 0.6 mg/dL (0.2-1.0); TOTAL PROTEIN 7.6 g/dL (6.4-8.2)
[2019-09-05 15:17] LABS: PROTHROMBIN TIME 10.5 Seconds (9.6-11.5)
[~2019-09-06] VITALS: Ht 190.5 cm; Wt 141.8 kg
[~2019-09-06 04:31] MED LIST changes: +B CO1CAP5 PO; +CHOL5000 PO; +FURO20TA3 PO; +FURO40TA6 PO; +INSU100I11 SQ-INSULIN; +INSU100I34 SC; +POTA10TA5 PO; +POTA10TA6 PO; +POTA99TA2 PO; +UBID1CAP43 PO
[2019-09-06 04:55] VITALS: BP_SYST 125; BP_SYST 132; BP_DIAS 88; BP_DIAS 92
[2019-09-06] MEDS ORDERED: DO NOT GIVE MC SCH (05:00)
[2019-09-06] MEDS ORDERED: CHLORHEXIDINE 15 ML UDC MM PRN (05:00)
[2019-09-06] MEDS ORDERED: INSULIN LISPRO 100 UNITS/ML, PEN SQ-INSULIN SCH (05:00)
[2019-09-06] MEDS ORDERED: MIDAZOLAM 10MG/2 ML ONE (06:45)
[2019-09-06] MEDS ORDERED: FENTANYL PF 250 MCG/5ML ONE ×5 (06:45→14:43)
[2019-09-06] MEDS ORDERED: PROPOFOL 10 MG/ML, 20ML ONE (06:47)
[2019-09-06] MEDS ORDERED: AMINOCAPROIC ACID 250 MG/ML, 20ML ONE ×3 (06:47→11:37)
[2019-09-06] MEDS ORDERED: ROCURONIUM 10MG/ML,5ML ONE ×5 (06:47→13:25)
[2019-09-06] MEDS ORDERED: MAGNESIUM SULFATE PMX 2GM/50ML 50 ML ONE (07:20)
[2019-09-06] MEDS ORDERED: ALBUMIN HUMAN 5% 500 ML IV PRN (07:30)
[2019-09-06] MEDS ORDERED: DEXMEDETOMIDINE 200 MCG in SODIUM CHLORIDE 0.9% 48 ML IV SCH (07:30)
[2019-09-06] MEDS ORDERED: EPINEPHRINE 2 MG in SODIUM CHLORIDE 0.9% 248 ML IV SCH (07:30)
[2019-09-06] MEDS ORDERED: POTASSIUM CHLORIDE 80 MEQ, SODIUM BICARBONATE 8.4% 10 MEQ, MAGNESIUM SULFATE 0.5 GM, LI... IV PRN (07:30)
[2019-09-06] MEDS ORDERED: CEFUROXIME 1.5 GM in SODIUM CHLORIDE 0.9% 50 ML IVPB PRN (07:30)
[2019-09-06] MEDS ORDERED: PHENYLEPHRINE 10 MG in SODIUM CHLORIDE 0.9% 249 ML IV PRN ×2 (07:30→14:41)
[2019-09-06] MEDS ORDERED: REGULAR INSULIN 62.5 UNITS in SODIUM CHLORIDE 0.9% 249.375 ML IV PRN ×2 (07:30→17:26)
[2019-09-06] MEDS ORDERED: MANNITOL PMX 20% 500 ML IVPB PRN (07:30)
[2019-09-06] MEDS ORDERED: VANCOMYCIN 2,100 MG in SODIUM CHLORIDE 0.9% 500 ML IV PRN (07:30)
[2019-09-06] MEDS ORDERED: EPINEPHRINE 1 MG/ML, 1ML ONE (08:38)
[2019-09-06] MEDS ORDERED: PHENYLEPHRINE 10 MG/ML ONE ×3 (08:38→10:02)
[2019-09-06] MEDS ORDERED: MUPIROCIN OINT 2%, 22GM TP SCH (09:00)
[2019-09-06] MEDS ORDERED: LIDOCAINE-MPF 2% ,5ML ONE ×2 (10:53→15:09)
[2019-09-06] MEDS ORDERED: CALCIUM CHLORIDE 10%, 10ML SYR ONE (10:55)
[2019-09-06] MEDS: SODIUM CHLORIDE FLUSH 10ML SYR IVF SCH ×3 (11:43→21:19)
[2019-09-06] MEDS ORDERED: NOREPINEPHRINE 4 MG in SODIUM CHLORIDE 0.9% 246 ML IV SCH (13:22)
[2019-09-06] MEDS ORDERED: NITROGLYCERIN/D5W PMX 250 ML IV PRN (14:41)
[2019-09-06] MEDS ORDERED: DOBUTAMINE 250 MG in SODIUM CHLORIDE 0.9% 230 ML IV PRN (14:41)
[2019-09-06] MEDS ORDERED: SODIUM CHLORIDE 0.9% 1,000 ML IV PRN (14:41)
[2019-09-06] MEDS ORDERED: DEXMEDETOMIDINE 200 MCG in SODIUM CHLORIDE 0.9% 48 ML IV PRN (14:41)
[2019-09-06] MEDS ORDERED: VASOPRESSIN 50 UNIT in SODIUM CHLORIDE 0.9% 247.5 ML IV PRN (14:41)
[2019-09-06] MEDS ORDERED: BISACODYL 5 MG EC TABLET PO PRN (15:00)
[2019-09-06] MEDS ORDERED: GLUCAGON 1 MG IM PRN (15:00)
[2019-09-06] MEDS ORDERED: ONDANSETRON 2MG/ML, 2ML IVPush PRN (15:00)
[2019-09-06] MEDS ORDERED: HYDROcodone/APAP 5/325 TABLET PO PRN (15:00)
[2019-09-06] MEDS ORDERED: MIDAZOLAM 1 MG/ML, 5ML IVPush PRN (15:00)
[2019-09-06] MEDS ORDERED: ACETAMINOPHEN 650 MG SUPP PR PRN (15:00)
[2019-09-06] MEDS ORDERED: DEXTROSE 4 GM TAB.CHEW PO PRN (15:00)
[2019-09-06] MEDS ORDERED: PROCHLORPERAZINE 5 MG/ML, 2ML IVPush PRN (15:00)
[2019-09-06] MEDS ORDERED: BISACODYL 10 MG SUPP PR PRN (15:00)
[2019-09-06] MEDS ORDERED: MANNITOL 0.25 GM/ML, 50ML ONE (15:09)
[2019-09-06] MEDS ORDERED: HEPARIN 1,000 UNITS/ML, 30ML ONE (15:09)
[2019-09-06] MEDS ORDERED: methylPREDNISolone SOD SUCC 125 MG/2 ML ONE (15:09)
[2019-09-06] MEDS ORDERED: ALBUMIN HUMAN 25% 50 ML ONE (15:09)
[2019-09-06 15:28] LABS: GLUCOSE BY BLOOD GAS ANALYZER 187 mg/dL (70-110); HEMOGLOBIN BY BLOOD GAS ANALYZ 11.3 g/dL (14.0-18.0); POTASSIUM BY BLOOD GAS ANALYZR 3.7 mmol/L (3.6-5.5)
[2019-09-06] MEDS: INSULIN LISPRO 100 UNITS/ML, PEN SQ-INSULIN SCH ×2 (15:35→19:48)
[2019-09-06] MEDS: DOCUSATE 100 MG CAPSULE PO SCH ×2 (15:36→19:48)
[2019-09-06 15:40] LABS: INTERNATIONAL NORMALIZED RATIO 1.14 (0.93-1.1); PROTHROMBIN TIME 11.9 Seconds (9.6-11.5)
[2019-09-06] MEDS ORDERED: SODIUM BICARBONATE 1 MEQ/ML, 50ML VIAL ONE (15:41)
[2019-09-06] MEDS: SODIUM BICARB 8.4%, 50ML SYRINGE IV PRN ×2 (15:44→17:03)
[2019-09-06] MEDS ORDERED: POTASSIUM CHLORIDE PMX 100 ML IVPB ONE (16:15)
[2019-09-06] MEDS: KSCALE TO 4.5 IV SCH ×2 (16:44→21:00)
[2019-09-06] MEDS ORDERED: ALBUTEROL SULFATE 2.5 MG/3 ML ONE (17:54)
[2019-09-06] MEDS: ALBUTEROL SULFATE 2.5 MG/3 ML INLINE SCH ×2 (17:59→19:57)
[2019-09-06] MEDS: EPINEPHRINE 2 MG in SODIUM CHLORIDE 0.9% 248 ML IV PRN ×2 (18:44→18:54)
[2019-09-06] MEDS: HYDROmorphone 1 MG/ML, 1ML INJ IVPush PRN ×3 (19:23→23:40)
[2019-09-06] MEDS: KETOROLAC 30 MG/1 ML IVPush PRN (19:23)
[2019-09-06] MEDS: MAGNESIUM SULFATE 1 GM in SODIUM CHLORIDE 0.9% 50 ML IVPB SCH (20:17)
[2019-09-06] MEDS ORDERED: CEFUROXIME 1.5 GM in SODIUM CHLORIDE 0.9% 100 ML IV SCH (20:30)
[2019-09-06] MEDS ORDERED: VANCOMYCIN 2,100 MG in SODIUM CHLORIDE 0.9% 250 ML IVPB SCH (20:45)
[2019-09-06] MEDS: MUPIROCIN OINT 2%, 22GM NAS SCH (21:18)
[2019-09-06] MEDS: LACTATED RINGERS 1,000 ML IV PRN ×2 (21:34→22:06)
[2019-09-06] MEDS: CEFUROXIME 1.5 GM in SODIUM CHLORIDE 0.9% 50 ML IVPB SCH (21:45)
[2019-09-06] MEDS: HYDROcodone/APAP 10/325 MG TABLET PO PRN (22:18)
[2019-09-06] MEDS: VANCOMYCIN 2,100 MG in SODIUM CHLORIDE 0.9% 500 ML IVPB SCH (22:35)
[2019-09-07] MEDS: KETOROLAC 30 MG/1 ML IVPush PRN ×2 (01:27→07:58)
[2019-09-07] MEDS: HYDROmorphone 1 MG/ML, 1ML INJ IVPush PRN ×7 (01:43→23:27)
[2019-09-07] MEDS: HYDROcodone/APAP 10/325 MG TABLET PO PRN ×5 (02:15→21:13)
[2019-09-07] MEDS: KSCALE TO 4.5 IV SCH ×2 (03:00→09:00)
[2019-09-07 03:47] LABS: BASOPHILS # (AUTO) 0.01 x10^3/uL (0-0.1); BASOPHILS % (AUTO) 0 % (0-1); EOSINOPHILS # (AUTO) 0.02 x10^3/uL (0-0.4); EOSINOPHILS % (AUTO) 0 % (1-7); LYMPHOCYTES # (AUTO) 0.68 x10^3/uL (1-3.4); LYMPHOCYTES % (AUTO) 5 % (22-44); MD NO; MEAN CORPUSCULAR HEMOGLOBIN 28.9 pg (27.5-34.5); MEAN CORPUSCULAR HGB CONC 32.3 g/dL (33.2-36.2); MEAN CORPUSCULAR VOLUME 89.4 fL (81-97); MEAN PLATELET VOLUME 8.7 fL (7.4-10.4); MONOCYTES # (AUTO) 1.43 x10^3/uL (0.2-0.8); MONOCYTES % (AUTO) 10 % (2-9); NEUTROPHILS # (AUTO) 12.17 x10^3/uL (1.8-6.8); NEUTROPHILS % (AUTO) 85 % (42-75); PLATELET COUNT 195 x10^3/uL (130-400); RED BLOOD COUNT 3.51 x10^6/uL (4.38-5.82); RED CELL DISTRIBUTION WIDTH 15.1 % (9.4-14.8)
[2019-09-07 03:48] LABS: INTERNATIONAL NORMALIZED RATIO 1.01 (0.93-1.1); PROTHROMBIN TIME 10.6 Seconds (9.6-11.5)
[2019-09-07 03:52] LABS: ALBUMIN 2.8 g/dL (3.4-5.0); ANION GAP 7 mmol/L (5-15); CALCIUM 8.1 mg/dL (8.5-10.1); CHLORIDE 113 mmol/L (98-107); CREATININE 2.02 mg/dL (0.7-1.3)
[2019-09-07] MEDS: ALBUTEROL SULFATE 2.5 MG/3 ML NPPB SCH ×4 (05:16→20:04)
[2019-09-07] MEDS: INSULIN LISPRO 100 UNITS/ML, PEN SQ-INSULIN SCH ×4 (06:10→21:12)
[2019-09-07] MEDS ORDERED: FUROSEMIDE 40 MG/4 ML IV ONE (08:30)
[2019-09-07] MEDS: VANCOMYCIN 2,100 MG in SODIUM CHLORIDE 0.9% 500 ML IVPB SCH (09:36)
[2019-09-07] MEDS: CEFUROXIME 1.5 GM in SODIUM CHLORIDE 0.9% 50 ML IVPB SCH (09:38)
[2019-09-07] MEDS: MUPIROCIN OINT 2%, 22GM NAS SCH ×2 (09:38→21:14)
[2019-09-07] MEDS: GUAIFENESIN 200 MG TABLET PO SCH ×3 (09:38→21:12)
[2019-09-07] MEDS: SODIUM CHLORIDE FLUSH 10ML SYR IVF SCH ×4 (09:38→21:14)
[2019-09-07] MEDS: ASPIRIN 81 MG TABLET EC PO SCH (09:39)
[2019-09-07] MEDS: DOCUSATE 100 MG CAPSULE PO SCH ×2 (09:39→21:13)
[2019-09-07] MEDS ORDERED: METOPROLOL 1 MG/ML, 5ML ONE (10:51)
[2019-09-07] MEDS ORDERED: INSULIN REGULAR 100 UNITS/ML, 3ML VIAL ONE (11:19)
[2019-09-07] MEDS ORDERED: DEXTROSE 50%, 50ML SYRINGE IVPush ONE (11:30)
[2019-09-07] MEDS ORDERED: INSULIN REGULAR 100 UNITS/ML, 3ML VIAL IVPush ONE (11:30)
[2019-09-07 11:50] LABS: ANION GAP 9 mmol/L (5-15); CALCIUM 7.6 mg/dL (8.5-10.1); CHLORIDE 111 mmol/L (98-107)
[2019-09-07 11:51] LABS: CREATININE 2.62 mg/dL (0.7-1.3)
[2019-09-07] MEDS: MAGNESIUM SULFATE 1 GM in SODIUM CHLORIDE 0.9% 50 ML IVPB SCH (15:33)
[2019-09-07] MEDS ORDERED: LACTATED RINGERS 500 ML IVBOLUS ONE (17:00)
[2019-09-07] MEDS: CHLORHEXIDINE 15 ML UDC MM SCH (21:12)
[2019-09-08] MEDS: FENTANYL PF 100 MCG/2ML IVPush PRN ×4 (00:57→08:41)
[2019-09-08 02:40] LABS: MEAN CORPUSCULAR HGB CONC 32.4 g/dL (33.2-36.2); MEAN CORPUSCULAR VOLUME 89.5 fL (81-97); MEAN PLATELET VOLUME 8.8 fL (7.4-10.4); PLATELET COUNT 152 x10^3/uL (130-400); RED BLOOD COUNT 3.13 x10^6/uL (4.38-5.82); RED CELL DISTRIBUTION WIDTH 15.3 % (9.4-14.8)
[2019-09-08 02:41] LABS: ANION GAP 7 mmol/L (5-15); CALCIUM 8.2 mg/dL (8.5-10.1); CHLORIDE 104 mmol/L (98-107); CREATININE 3.64 mg/dL (0.7-1.3)
[2019-09-08 02:51] LABS: MD YES
[2019-09-08 02:52] LABS: BAND#(MANUAL) 0.63 x10^3/uL; BANDS%(MANUAL) 4 % (0-7); LYMPH#(MANUAL) 1.74 x10^3/uL (1-3.4); LYMPHS% (MANUAL) 11 % (22-44); MONOS#(MANUAL) 1.58 x10^3/uL (0.3-2.7); MONOS% (MANUAL) 10 % (2-9); NRBC % (MANUAL) 1 % (0-1); SEG#(MANUAL) 11.85 x10^3/uL (1.8-6.8); SEGS% (MANUAL) 75 % (42-75)
[2019-09-08 02:54] LABS: <PLATELET ESTIMATE> DECREASED; ANISOCYTOSIS 1+; LARGE PLATELETS 1+; POLYCHROMASIA 1+
[2019-09-08 02:55] LABS: INTERNATIONAL NORMALIZED RATIO 0.99 (0.93-1.1); PROTHROMBIN TIME 10.5 Seconds (9.6-11.5)
[2019-09-08] MEDS ORDERED: DEXTROSE 50%, 50ML VIAL IVPush ONE (03:00)
[2019-09-08] MEDS ORDERED: INSULIN REGULAR 100 UNITS/ML, 3ML VIAL IVPush ONE ×2 (03:00→14:00)
[2019-09-08] MEDS: DEXTROSE 50%, 50ML SYRINGE IVPush PRN ×2 (03:13→14:48)
[2019-09-08] MEDS: INSULIN LISPRO 100 UNITS/ML, PEN SQ-INSULIN SCH ×4 (06:54→20:26)
[2019-09-08] MEDS: ALBUTEROL SULFATE 2.5 MG/3 ML NPPB SCH ×4 (07:18→20:00)
[2019-09-08] MEDS: CHLORHEXIDINE 15 ML UDC MM SCH ×2 (08:35→20:20)
[2019-09-08] MEDS: DOCUSATE 100 MG CAPSULE PO SCH ×2 (08:35→20:21)
[2019-09-08] MEDS: GUAIFENESIN 200 MG TABLET PO SCH ×4 (08:35→20:20)
[2019-09-08] MEDS: ASPIRIN 81 MG TABLET EC PO SCH (08:35)
[2019-09-08] MEDS: SODIUM CHLORIDE FLUSH 10ML SYR IVF SCH ×4 (08:36→20:21)
[2019-09-08] MEDS: MUPIROCIN OINT 2%, 22GM NAS SCH ×2 (10:23→20:21)
[2019-09-08] MEDS ORDERED: FUROSEMIDE 40 MG/4 ML ONE (10:25)
[2019-09-08] MEDS ORDERED: FUROSEMIDE 20 MG/2 ML IV ONE (10:30)
[2019-09-08] MEDS ORDERED: FUROSEMIDE 40 MG/4 ML IV ONE (14:00)
[2019-09-08] MEDS ORDERED: DEXTROSE 50%, 50ML SYRINGE IVPush ONE (14:30)
[2019-09-08] MEDS: MAGNESIUM SULFATE 1 GM in SODIUM CHLORIDE 0.9% 50 ML IVPB SCH (15:00)
[2019-09-08] MEDS ORDERED: OXYcodone IR 5MG TABLET PO PRN (15:00)
[2019-09-08] MEDS ORDERED: ALBUMIN HUMAN 25% 100 ML IV PRN (15:30)
[2019-09-08] MEDS: METHOCARBAMOL 500 MG TABLET PO PRN (17:17)
[2019-09-08] MEDS: HYDROmorphone 2MG TABLET PO PRN (18:46)
[2019-09-09 04:29] LABS: MEAN CORPUSCULAR HEMOGLOBIN 28.3 pg (27.5-34.5); MEAN CORPUSCULAR HGB CONC 31.8 g/dL (33.2-36.2); MEAN PLATELET VOLUME 8.3 fL (7.4-10.4); PLATELET COUNT 143 x10^3/uL (130-400); RED BLOOD COUNT 2.85 x10^6/uL (4.38-5.82); RED CELL DISTRIBUTION WIDTH 15.4 % (9.4-14.8)
[2019-09-09 04:33] LABS: % IRON SATURATION 4 % (20-55); ALBUMIN 2.8 g/dL (3.4-5.0); ANION GAP 10 mmol/L (5-15); CALCIUM 7.8 mg/dL (8.5-10.1); CHLORIDE 101 mmol/L (98-107); CREATININE 3.08 mg/dL (0.7-1.3); IRON LEVEL 10 mcg/dL (65-175); TOTAL IRON BINDING CAPACITY 261 mcg/dL (250-450)
[2019-09-09 05:40] LABS: BASOPHILS # (AUTO) 0.04 x10^3/uL (0-0.1); BASOPHILS % (AUTO) 0 % (0-1); EOSINOPHILS # (AUTO) 0.01 x10^3/uL (0-0.4); EOSINOPHILS % (AUTO) 0 % (1-7); LYMPHOCYTES # (AUTO) 0.79 x10^3/uL (1-3.4); LYMPHOCYTES % (AUTO) 7 % (22-44); MD SCAN; MONOCYTES # (AUTO) 1.26 x10^3/uL (0.2-0.8); MONOCYTES % (AUTO) 11 % (2-9); NEUTROPHILS # (AUTO) 9.56 x10^3/uL (1.8-6.8); NEUTROPHILS % (AUTO) 82 % (42-75)
[2019-09-09] MEDS: GUAIFENESIN 200 MG TABLET PO SCH ×4 (06:35→19:54)
[2019-09-09] MEDS: HYDROmorphone 2MG TABLET PO PRN ×3 (06:36→18:39)
[2019-09-09] MEDS: INSULIN LISPRO 100 UNITS/ML, PEN SQ-INSULIN SCH ×4 (06:46→19:59)
[2019-09-09] MEDS: ALBUTEROL SULFATE 2.5 MG/3 ML NPPB SCH ×4 (07:20→21:02)
[2019-09-09] MEDS: CHLORHEXIDINE 15 ML UDC MM SCH (08:11)
[2019-09-09] MEDS: SODIUM CHLORIDE FLUSH 10ML SYR IVF SCH ×4 (08:12→19:55)
[2019-09-09] MEDS: ASPIRIN 81 MG TABLET EC PO SCH (08:12)
[2019-09-09] MEDS: DOCUSATE 100 MG CAPSULE PO SCH ×2 (08:12→19:54)
[2019-09-09] MEDS: MUPIROCIN OINT 2%, 22GM NAS SCH ×2 (08:12→19:55)
[2019-09-09] MEDS ORDERED: FUROSEMIDE 40 MG/4 ML IV ONE (08:30)
[2019-09-09] MEDS ORDERED: METOLAZONE 10 MG TABLET PO ONE (09:30)
[2019-09-09] MEDS: METHOCARBAMOL 500 MG TABLET PO PRN ×2 (10:20→19:54)
[2019-09-09 11:52] VITALS: BP 104/71
[2019-09-09 12:14] VITALS: BP 120/67
[2019-09-09 15:30] VITALS: BP 112/74
[2019-09-09 17:00] VITALS: BP 116/60
[2019-09-10] MEDS: HYDROmorphone 2MG TABLET PO PRN ×2 (02:05→06:05)
[2019-09-10 05:21] LABS: BASOPHILS # (AUTO) 0.01 x10^3/uL (0-0.1); BASOPHILS % (AUTO) 0 % (0-1); EOSINOPHILS # (AUTO) 0.07 x10^3/uL (0-0.4); EOSINOPHILS % (AUTO) 1 % (1-7); LYMPHOCYTES # (AUTO) 0.82 x10^3/uL (1-3.4); LYMPHOCYTES % (AUTO) 9 % (22-44); MD NO; MEAN CORPUSCULAR HEMOGLOBIN 28.9 pg (27.5-34.5); MEAN CORPUSCULAR HGB CONC 32.5 g/dL (33.2-36.2); MEAN CORPUSCULAR VOLUME 88.9 fL (81-97); MEAN PLATELET VOLUME 8.4 fL (7.4-10.4); MONOCYTES # (AUTO) 1.37 x10^3/uL (0.2-0.8); MONOCYTES % (AUTO) 15 % (2-9); NEUTROPHILS # (AUTO) 7.15 x10^3/uL (1.8-6.8); NEUTROPHILS % (AUTO) 76 % (42-75); PLATELET COUNT 151 x10^3/uL (130-400); RED BLOOD COUNT 3.03 x10^6/uL (4.38-5.82); RED CELL DISTRIBUTION WIDTH 15.2 % (9.4-14.8)
[2019-09-10 05:26] LABS: CHLORIDE 103 mmol/L (98-107)
[2019-09-10 05:30] LABS: ANION GAP 7 mmol/L (5-15); CALCIUM 8.8 mg/dL (8.5-10.1); CREATININE 1.41 mg/dL (0.7-1.3)
[2019-09-10] MEDS: GUAIFENESIN 200 MG TABLET PO SCH ×4 (06:04→20:45)
[2019-09-10] MEDS: METHOCARBAMOL 500 MG TABLET PO PRN (06:05)
[2019-09-10] MEDS: INSULIN LISPRO 100 UNITS/ML, PEN SQ-INSULIN SCH ×4 (06:08→20:47)
[2019-09-10] MEDS: ALBUTEROL SULFATE 2.5 MG/3 ML NPPB SCH ×3 (07:00→16:15)
[2019-09-10] MEDS: ASPIRIN 81 MG TABLET EC PO SCH (08:54)
[2019-09-10] MEDS: CHOLECALCIFEROL 5,000u TAB PO SCH (08:54)
[2019-09-10] MEDS: AMLODIPINE 10 MG TAB PO SCH (08:54)
[2019-09-10] MEDS: DOCUSATE 100 MG CAPSULE PO SCH ×2 (08:54→20:44)
[2019-09-10] MEDS: APAP/CODEINE 300/60MG TABLET PO PRN ×3 (08:54→17:50)
[2019-09-10] MEDS: SODIUM CHLORIDE FLUSH 10ML SYR IVF SCH ×4 (09:00→20:46)
[2019-09-10] MEDS: INSULIN GLARGINE 100 UNITS/ML, PEN SQ-INSULIN SCH ×2 (09:05→20:48)
[2019-09-10] MEDS ORDERED: IRON DEXTRAN COMPLEX 25 MG in SODIUM CHLORIDE 0.9% 50 ML IV ONE (10:00)
[2019-09-10] MEDS ORDERED: FUROSEMIDE 40 MG/4 ML IV ONE (10:00)
[2019-09-10] MEDS: MUPIROCIN OINT 2%, 22GM NAS SCH ×2 (10:48→20:45)
[2019-09-10] MEDS ORDERED: SODIUM CHLORIDE 0.9% IV ONE ×2 (11:00→13:56)
[2019-09-10] MEDS ORDERED: IRON DEXTRAN COMPLEX IV ONE ×2 (11:00→13:56)
[2019-09-10] MEDS ORDERED: ALBUTEROL SULFATE 2.5 MG/3 ML NPPB PRN (16:30)
[2019-09-10] MEDS: ATORVASTATIN 80 MG TABLET PO SCH (20:44)
[2019-09-11] MEDS: APAP/CODEINE 300/60MG TABLET PO PRN ×4 (01:46→20:45)
[2019-09-11] MEDS: METHOCARBAMOL 500 MG TABLET PO PRN ×3 (01:49→20:45)
[2019-09-11] MEDS: HYDROmorphone 2MG TABLET PO PRN ×3 (02:17→22:10)
[2019-09-11 05:19] LABS: BASOPHILS # (AUTO) 0.01 x10^3/uL (0-0.1); BASOPHILS % (AUTO) 0 % (0-1); EOSINOPHILS # (AUTO) 0.11 x10^3/uL (0-0.4); EOSINOPHILS % (AUTO) 1 % (1-7); LYMPHOCYTES % (AUTO) 18 % (22-44); MD NO; MEAN CORPUSCULAR HEMOGLOBIN 29.3 pg (27.5-34.5); MEAN CORPUSCULAR HGB CONC 33.3 g/dL (33.2-36.2); MEAN PLATELET VOLUME 7.9 fL (7.4-10.4); MONOCYTES % (AUTO) 17 % (2-9); NEUTROPHILS # (AUTO) 5.03 x10^3/uL (1.8-6.8); NEUTROPHILS % (AUTO) 64 % (42-75); PLATELET COUNT 165 x10^3/uL (130-400); RED BLOOD COUNT 2.97 x10^6/uL (4.38-5.82); RED CELL DISTRIBUTION WIDTH 15.5 % (9.4-14.8)
[2019-09-11 05:30] LABS: ANION GAP 6 mmol/L (5-15); CALCIUM 9.2 mg/dL (8.5-10.1); CHLORIDE 103 mmol/L (98-107)
[2019-09-11 05:32] LABS: CREATININE 0.99 mg/dL (0.7-1.3)
[2019-09-11] MEDS: GUAIFENESIN 200 MG TABLET PO SCH ×4 (06:42→20:43)
[2019-09-11] MEDS: INSULIN LISPRO 100 UNITS/ML, PEN SQ-INSULIN SCH ×4 (06:44→20:46)
[2019-09-11] MEDS: SODIUM CHLORIDE FLUSH 10ML SYR IVF SCH ×4 (08:41→20:42)
[2019-09-11] MEDS: CHOLECALCIFEROL 5,000u TAB PO SCH (08:42)
[2019-09-11] MEDS: AMLODIPINE 10 MG TAB PO SCH (08:42)
[2019-09-11] MEDS: ASPIRIN 81 MG TABLET EC PO SCH (08:42)
[2019-09-11] MEDS: DOCUSATE 100 MG CAPSULE PO SCH ×2 (08:42→20:43)
[2019-09-11] MEDS: INSULIN GLARGINE 100 UNITS/ML, PEN SQ-INSULIN SCH ×2 (08:43→20:47)
[2019-09-11] MEDS: MUPIROCIN OINT 2%, 22GM NAS SCH (08:44)
[2019-09-11] MEDS ORDERED: FUROSEMIDE 40 MG/4 ML IV ONE (10:00)
[2019-09-11] MEDS: LIDODERM 5% PATCH TD SCH (10:00)
[2019-09-11] MEDS: ATORVASTATIN 80 MG TABLET PO SCH (20:43)
[2019-09-12] MEDS: APAP/CODEINE 300/60MG TABLET PO PRN ×5 (00:50→22:31)
[2019-09-12] MEDS: METHOCARBAMOL 500 MG TABLET PO PRN (00:50)
[2019-09-12] MEDS: HYDROmorphone 2MG TABLET PO PRN ×4 (03:04→19:56)
[2019-09-12 05:27] LABS: ANION GAP 6 mmol/L (5-15); CALCIUM 9.5 mg/dL (8.5-10.1); CHLORIDE 104 mmol/L (98-107); CREATININE 0.86 mg/dL (0.7-1.3)
[2019-09-12 05:35] LABS: MEAN CORPUSCULAR HEMOGLOBIN 28.7 pg (27.5-34.5); MEAN CORPUSCULAR VOLUME 89.7 fL (81-97); MEAN PLATELET VOLUME 7.9 fL (7.4-10.4); PLATELET COUNT 218 x10^3/uL (130-400); RED BLOOD COUNT 3.23 x10^6/uL (4.38-5.82); RED CELL DISTRIBUTION WIDTH 15.5 % (9.4-14.8)
[2019-09-12] MEDS: GUAIFENESIN 200 MG TABLET PO SCH ×4 (05:47→20:57)
[2019-09-12] MEDS: INSULIN LISPRO 100 UNITS/ML, PEN SQ-INSULIN SCH ×4 (05:49→21:05)
[2019-09-12 06:13] LABS: BASOPHILS # (AUTO) 0.05 x10^3/uL (0-0.1); BASOPHILS % (AUTO) 1 % (0-1); EOSINOPHILS # (AUTO) 0.28 x10^3/uL (0-0.4); EOSINOPHILS % (AUTO) 4 % (1-7); LYMPHOCYTES # (AUTO) 1.61 x10^3/uL (1-3.4); LYMPHOCYTES % (AUTO) 21 % (22-44); MD SCAN; MONOCYTES # (AUTO) 1.23 x10^3/uL (0.2-0.8); MONOCYTES % (AUTO) 16 % (2-9); NEUTROPHILS # (AUTO) 4.49 x10^3/uL (1.8-6.8); NEUTROPHILS % (AUTO) 59 % (42-75)
[2019-09-12] MEDS: SODIUM CHLORIDE FLUSH 10ML SYR IVF SCH ×5 (08:52→20:58)
[2019-09-12] MEDS: ACETAMINOPHEN 325 MG TABLET PO PRN ×3 (08:53→19:56)
[2019-09-12] MEDS: POLYETHYLENE GLYCOL 17 GM PACKET PO SCH (08:54)
[2019-09-12] MEDS: ASPIRIN 81 MG TABLET EC PO SCH (08:54)
[2019-09-12] MEDS: CHOLECALCIFEROL 5,000u TAB PO SCH (08:54)
[2019-09-12] MEDS: AMLODIPINE 10 MG TAB PO SCH (08:54)
[2019-09-12] MEDS: DOCUSATE 100 MG CAPSULE PO SCH ×2 (08:54→20:57)
[2019-09-12] MEDS: INSULIN GLARGINE 100 UNITS/ML, PEN SQ-INSULIN SCH ×2 (08:55→21:04)
[2019-09-12] MEDS ORDERED: FUROSEMIDE 20 MG/2 ML IV SCH (09:00)
[2019-09-12] MEDS ORDERED: MAGNESIUM HYDROXIDE 8%, 30ML UDC PO PRN (16:00)
[2019-09-12 20:00] VITALS: BP 126/82
[2019-09-12] MEDS: ATORVASTATIN 80 MG TABLET PO SCH (20:57)
[2019-09-12] MEDS: LIDODERM 5% PATCH TD SCH (20:57)
[2019-09-13] MEDS: ACETAMINOPHEN 325 MG TABLET PO PRN (00:40)
[2019-09-13] MEDS: HYDROmorphone 2MG TABLET PO PRN ×2 (00:40→06:35)
[2019-09-13 01:41] VITALS: BP 133/84
[2019-09-13] MEDS: APAP/CODEINE 300/60MG TABLET PO PRN ×2 (04:41→09:18)
[2019-09-13 06:11] LABS: ANION GAP 8 mmol/L (5-15); CALCIUM 9.4 mg/dL (8.5-10.1); CHLORIDE 102 mmol/L (98-107)
[2019-09-13 06:13] LABS: CREATININE 0.92 mg/dL (0.7-1.3)
[2019-09-13] MEDS: GUAIFENESIN 200 MG TABLET PO SCH ×4 (06:34→20:34)
[2019-09-13 07:34] VITALS: BP 116/76
[2019-09-13] MEDS ORDERED: HYDROmorphone 2MG TABLET PO PRN (08:00)
[2019-09-13] MEDS: DOCUSATE 100 MG CAPSULE PO SCH ×2 (09:00→20:35)
[2019-09-13] MEDS: SODIUM CHLORIDE FLUSH 10ML SYR IVF SCH ×6 (09:00→23:40)
[2019-09-13] MEDS: POLYETHYLENE GLYCOL 17 GM PACKET PO SCH (09:00)
[2019-09-13] MEDS: INSULIN LISPRO 100 UNITS/ML, PEN SQ-INSULIN SCH ×4 (09:17→23:13)
[2019-09-13] MEDS: FUROSEMIDE 40 MG/4 ML IV SCH (09:18)
[2019-09-13] MEDS: ASPIRIN 81 MG TABLET EC PO SCH (09:18)
[2019-09-13] MEDS: GABAPENTIN 300 MG CAPSULE PO SCH ×3 (09:18→20:35)
[2019-09-13] MEDS: INSULIN GLARGINE 100 UNITS/ML, PEN SQ-INSULIN SCH ×2 (09:18→23:12)
[2019-09-13] MEDS: CHOLECALCIFEROL 5,000u TAB PO SCH (09:19)
[2019-09-13] MEDS: AMLODIPINE 10 MG TAB PO SCH (09:19)
[2019-09-13] MEDS: OXYcodone IR 5MG TABLET PO PRN ×2 (14:04→20:35)
--- NOTE | 2019-09-13 14:20 | NUR ---
REC REGULAR/NTL; ORANGE SHEET WITH DIET RECS AND SWALLOW STRATEGIES POSTED AT BEDSIDE. Addendum: 09/13/19 at 1420 by Augusta BARAHONA Amended: Links added.
[2019-09-13 14:35] VITALS: BP 108/72
[2019-09-13] MEDS: ATORVASTATIN 80 MG TABLET PO SCH (20:35)
[2019-09-13] MEDS: LIDODERM 5% PATCH TD SCH (20:36)
[2019-09-13] MEDS: METHOCARBAMOL 500 MG TABLET PO PRN (23:44)
[2019-09-14 00:41] VITALS: BP 106/70
[2019-09-14] MEDS: OXYcodone IR 5MG TABLET PO PRN ×6 (01:38→19:29)
[2019-09-14 05:05] LABS: BASOPHILS # (AUTO) 0.03 x10^3/uL (0-0.1); BASOPHILS % (AUTO) 0 % (0-1); EOSINOPHILS # (AUTO) 0.17 x10^3/uL (0-0.4); EOSINOPHILS % (AUTO) 2 % (1-7); LYMPHOCYTES # (AUTO) 1.37 x10^3/uL (1-3.4); LYMPHOCYTES % (AUTO) 15 % (22-44); MD NO; MEAN CORPUSCULAR HGB CONC 32.2 g/dL (33.2-36.2); MEAN CORPUSCULAR VOLUME 90.1 fL (81-97); MEAN PLATELET VOLUME 8.1 fL (7.4-10.4); MONOCYTES # (AUTO) 0.93 x10^3/uL (0.2-0.8); MONOCYTES % (AUTO) 10 % (2-9); NEUTROPHILS # (AUTO) 6.69 x10^3/uL (1.8-6.8); NEUTROPHILS % (AUTO) 73 % (42-75); PLATELET COUNT 273 x10^3/uL (130-400); RED BLOOD COUNT 3.42 x10^6/uL (4.38-5.82); RED CELL DISTRIBUTION WIDTH 15.5 % (9.4-14.8)
[2019-09-14 05:15] LABS: ANION GAP 7 mmol/L (5-15); CALCIUM 9.3 mg/dL (8.5-10.1); CHLORIDE 100 mmol/L (98-107); CREATININE 1.23 mg/dL (0.7-1.3)
[2019-09-14] MEDS: GUAIFENESIN 200 MG TABLET PO SCH ×4 (06:20→20:29)
[2019-09-14] MEDS: METHOCARBAMOL 500 MG TABLET PO PRN (06:20)
[2019-09-14 08:00] VITALS: BP 117/76
[2019-09-14] MEDS: SODIUM CHLORIDE FLUSH 10ML SYR IVF SCH ×6 (08:05→20:30)
[2019-09-14] MEDS: DOCUSATE 100 MG CAPSULE PO SCH ×2 (08:06→20:29)
[2019-09-14] MEDS: CHOLECALCIFEROL 5,000u TAB PO SCH (08:07)
[2019-09-14] MEDS: ASPIRIN 81 MG TABLET EC PO SCH (08:07)
[2019-09-14] MEDS: AMLODIPINE 10 MG TAB PO SCH (08:07)
[2019-09-14] MEDS: FUROSEMIDE 40 MG/4 ML IV SCH (08:07)
[2019-09-14] MEDS: GABAPENTIN 300 MG CAPSULE PO SCH ×3 (08:07→20:29)
[2019-09-14] MEDS: INSULIN LISPRO 100 UNITS/ML, PEN SQ-INSULIN SCH ×4 (08:08→20:51)
[2019-09-14] MEDS: INSULIN GLARGINE 100 UNITS/ML, PEN SQ-INSULIN SCH ×2 (08:10→20:51)
[2019-09-14] MEDS: POLYETHYLENE GLYCOL 17 GM PACKET PO SCH (09:00)
[2019-09-14] MEDS ORDERED: ENOXAPARIN 40 MG/0.4 ML SQ SCH (12:00)
[2019-09-14] MEDS ORDERED: INSULIN LISPRO 100 UNITS/ML, PEN SQ-INSULIN ONE (13:00)
[2019-09-14 14:01] VITALS: BP 118/79
--- NOTE | 2019-09-14 14:34 | NUR ---
REC REGULAR/THIN LIQUIDS; ORANGE SHEET WITH DIET RECOMMENDATIONS AND SWALLOW STRATEGIES POSTED AT BEDSIDE. Addendum: 09/14/19 at 1435 by Augusta BARAHONA Amended: Links added.
[2019-09-14 16:18] LABS: MICROSCOPIC AUTO
[2019-09-14 16:20] LABS: CULTURE INDICATED? YES
[2019-09-14] MEDS: PHENAZOPYRIDINE 100 MG TABLET PO SCH ×2 (18:13→20:29)
[2019-09-14] MEDS: ATORVASTATIN 80 MG TABLET PO SCH (20:29)
[2019-09-14 20:36] VITALS: BP 108/65
[2019-09-14] MEDS: LIDODERM 5% PATCH TD SCH (21:49)
[2019-09-15] MEDS: OXYcodone IR 5MG TABLET PO PRN ×4 (00:12→21:47)
[2019-09-15] MEDS: METHOCARBAMOL 500 MG TABLET PO PRN ×3 (01:49→23:52)
[2019-09-15 04:08] VITALS: BP 121/77
[2019-09-15 05:43] LABS: BASOPHILS # (AUTO) 0.03 x10^3/uL (0-0.1); BASOPHILS % (AUTO) 0 % (0-1); EOSINOPHILS # (AUTO) 0.34 x10^3/uL (0-0.4); EOSINOPHILS % (AUTO) 3 % (1-7); LYMPHOCYTES % (AUTO) 16 % (22-44); MD NO; MEAN CORPUSCULAR HEMOGLOBIN 28.7 pg (27.5-34.5); MEAN CORPUSCULAR VOLUME 89.6 fL (81-97); MEAN PLATELET VOLUME 8.5 fL (7.4-10.4); MONOCYTES # (AUTO) 0.96 x10^3/uL (0.2-0.8); MONOCYTES % (AUTO) 9 % (2-9); NEUTROPHILS # (AUTO) 7.39 x10^3/uL (1.8-6.8); NEUTROPHILS % (AUTO) 71 % (42-75); PLATELET COUNT 307 x10^3/uL (130-400); RED BLOOD COUNT 3.41 x10^6/uL (4.38-5.82); RED CELL DISTRIBUTION WIDTH 16.5 % (9.4-14.8)
[2019-09-15 05:44] LABS: ANION GAP 6 mmol/L (5-15); CALCIUM 9.7 mg/dL (8.5-10.1); CHLORIDE 102 mmol/L (98-107)
[2019-09-15 05:48] LABS: ALANINE AMINOTRANSFERASE 83 U/L (12-78); ALBUMIN 2.7 g/dL (3.4-5.0); ALKALINE PHOSPHATASE 203 U/L (45-117); BILIRUBIN,TOTAL 0.9 mg/dL (0.2-1.0); CREATININE 1.27 mg/dL (0.7-1.3); TOTAL PROTEIN 7.4 g/dL (6.4-8.2)
[2019-09-15] MEDS: GUAIFENESIN 200 MG TABLET PO SCH ×4 (06:48→21:46)
[2019-09-15] MEDS: SODIUM CHLORIDE FLUSH 10ML SYR IVF SCH ×6 (08:00→21:00)
[2019-09-15 08:24] VITALS: BP 107/73
[2019-09-15] MEDS: ASPIRIN 81 MG TABLET EC PO SCH (08:25)
[2019-09-15] MEDS: DOCUSATE 100 MG CAPSULE PO SCH ×2 (08:25→21:46)
[2019-09-15] MEDS: GABAPENTIN 300 MG CAPSULE PO SCH ×3 (08:25→21:47)
[2019-09-15] MEDS: AMLODIPINE 10 MG TAB PO SCH (08:27)
[2019-09-15] MEDS: CHOLECALCIFEROL 5,000u TAB PO SCH (08:27)
[2019-09-15] MEDS: PHENAZOPYRIDINE 100 MG TABLET PO SCH ×3 (08:27→21:46)
[2019-09-15] MEDS: INSULIN LISPRO 100 UNITS/ML, PEN SQ-INSULIN SCH ×4 (08:28→22:08)
[2019-09-15] MEDS: INSULIN GLARGINE 100 UNITS/ML, PEN SQ-INSULIN SCH ×2 (08:28→22:07)
[2019-09-15] MEDS ORDERED: ENOXAPARIN 30 MG/0.3 ML SQ SCH (09:00)
[2019-09-15] MEDS: POLYETHYLENE GLYCOL 17 GM PACKET PO SCH (09:00)
[2019-09-15] MEDS: FUROSEMIDE 40 MG/4 ML IV SCH (09:21)
[2019-09-15] MEDS: HYDROcodone/APAP 10/325 MG TABLET PO PRN ×4 (09:26→23:53)
[2019-09-15] MEDS ORDERED: LIDOCAINE 2%, 10ML INFIL ONE (13:30)
[2019-09-15] MEDS ORDERED: LIDOCAINE JELLY 2%, 30GM TP ONE (15:00)
[2019-09-15] MEDS: CEFTRIAXONE PMX 1GM/50ML 50 ML IV SCH (15:47)
[2019-09-15 17:34] VITALS: BP 117/77
[2019-09-15 19:06] VITALS: BP 121/78
[2019-09-15] MEDS: ATORVASTATIN 80 MG TABLET PO SCH (21:47)
[2019-09-15] MEDS: LIDODERM 5% PATCH TD SCH (22:08)
[2019-09-16] MEDS: OXYcodone IR 5MG TABLET PO PRN ×5 (01:57→23:26)
[2019-09-16] MEDS: HYDROcodone/APAP 10/325 MG TABLET PO PRN (04:01)
[2019-09-16 04:12] VITALS: BP 111/77
[2019-09-16 05:08] LABS: BASOPHILS # (AUTO) 0.04 x10^3/uL (0-0.1); BASOPHILS % (AUTO) 0 % (0-1); EOSINOPHILS # (AUTO) 0.28 x10^3/uL (0-0.4); EOSINOPHILS % (AUTO) 3 % (1-7); LYMPHOCYTES # (AUTO) 1.87 x10^3/uL (1-3.4); LYMPHOCYTES % (AUTO) 18 % (22-44); MD NO; MEAN CORPUSCULAR HEMOGLOBIN 28.5 pg (27.5-34.5); MEAN CORPUSCULAR HGB CONC 31.8 g/dL (33.2-36.2); MEAN CORPUSCULAR VOLUME 89.6 fL (81-97); MEAN PLATELET VOLUME 8.8 fL (7.4-10.4); MONOCYTES # (AUTO) 0.62 x10^3/uL (0.2-0.8); MONOCYTES % (AUTO) 6 % (2-9); NEUTROPHILS # (AUTO) 7.73 x10^3/uL (1.8-6.8); NEUTROPHILS % (AUTO) 73 % (42-75); PLATELET COUNT 337 x10^3/uL (130-400); RED BLOOD COUNT 3.41 x10^6/uL (4.38-5.82); RED CELL DISTRIBUTION WIDTH 15.9 % (9.4-14.8)
[2019-09-16 05:14] LABS: ANION GAP 7 mmol/L (5-15); CALCIUM 9.5 mg/dL (8.5-10.1); CHLORIDE 103 mmol/L (98-107)
[2019-09-16 05:17] LABS: CREATININE 1.12 mg/dL (0.7-1.3)
[2019-09-16] MEDS: GUAIFENESIN 200 MG TABLET PO SCH ×4 (05:45→21:15)
[2019-09-16 07:00] VITALS: BP 117/68
[2019-09-16] MEDS: INSULIN LISPRO 100 UNITS/ML, PEN SQ-INSULIN SCH ×4 (08:36→21:47)
[2019-09-16] MEDS: INSULIN GLARGINE 100 UNITS/ML, PEN SQ-INSULIN SCH ×2 (08:38→21:46)
[2019-09-16] MEDS: PHENAZOPYRIDINE 100 MG TABLET PO SCH (08:43)
[2019-09-16] MEDS: CHOLECALCIFEROL 5,000u TAB PO SCH (08:43)
[2019-09-16] MEDS: DOCUSATE 100 MG CAPSULE PO SCH ×2 (08:43→21:14)
[2019-09-16] MEDS: ASPIRIN 81 MG TABLET EC PO SCH (08:43)
[2019-09-16] MEDS: GABAPENTIN 300 MG CAPSULE PO SCH ×3 (08:43→21:14)
[2019-09-16] MEDS: AMLODIPINE 10 MG TAB PO SCH (08:43)
[2019-09-16] MEDS: POLYETHYLENE GLYCOL 17 GM PACKET PO SCH (08:44)
[2019-09-16] MEDS: FUROSEMIDE 40 MG/4 ML IV SCH (08:44)
[2019-09-16] MEDS: SODIUM CHLORIDE FLUSH 10ML SYR IVF SCH ×6 (08:46→21:15)
[2019-09-16] MEDS: METHOCARBAMOL 500 MG TABLET PO PRN ×3 (09:38→23:35)
[2019-09-16] MEDS: AMIODARONE 200 MG TABLET PO SCH ×2 (10:48→21:13)
[2019-09-16] MEDS: CEFTRIAXONE PMX 1GM/50ML 50 ML IV SCH (13:15)
[2019-09-16 14:00] VITALS: BP 111/76
[2019-09-16 21:10] VITALS: BP 110/72
[2019-09-16] MEDS: ATORVASTATIN 80 MG TABLET PO SCH (21:13)
[2019-09-16] MEDS: LIDODERM 5% PATCH TD SCH (21:17)
[2019-09-17 01:09] VITALS: BP 118/80
[2019-09-17] MEDS: GUAIFENESIN 200 MG TABLET PO SCH (05:12)
[2019-09-17] MEDS: OXYcodone IR 5MG TABLET PO PRN ×2 (05:24→11:24)
[2019-09-17 05:39] LABS: BASOPHILS # (AUTO) 0.06 x10^3/uL (0-0.1); BASOPHILS % (AUTO) 1 % (0-1); EOSINOPHILS # (AUTO) 0.25 x10^3/uL (0-0.4); EOSINOPHILS % (AUTO) 2 % (1-7); LYMPHOCYTES # (AUTO) 1.62 x10^3/uL (1-3.4); LYMPHOCYTES % (AUTO) 15 % (22-44); MD NO; MEAN CORPUSCULAR HEMOGLOBIN 29.1 pg (27.5-34.5); MEAN CORPUSCULAR HGB CONC 32.3 g/dL (33.2-36.2); MEAN CORPUSCULAR VOLUME 90.2 fL (81-97); MEAN PLATELET VOLUME 8.2 fL (7.4-10.4); MONOCYTES # (AUTO) 0.72 x10^3/uL (0.2-0.8); MONOCYTES % (AUTO) 7 % (2-9); NEUTROPHILS # (AUTO) 8.03 x10^3/uL (1.8-6.8); NEUTROPHILS % (AUTO) 75 % (42-75); PLATELET COUNT 407 x10^3/uL (130-400); RED BLOOD COUNT 3.33 x10^6/uL (4.38-5.82)
[2019-09-17 05:46] LABS: ANION GAP 8 mmol/L (5-15); CHLORIDE 107 mmol/L (98-107)
[2019-09-17 05:47] LABS: CALCIUM 9.3 mg/dL (8.5-10.1); CREATININE 1.17 mg/dL (0.7-1.3)
[2019-09-17] MEDS: POLYETHYLENE GLYCOL 17 GM PACKET PO SCH (09:00)
[2019-09-17] MEDS ORDERED: TAMSULOSIN 0.4 MG CAP.ER.24H PO SCH (09:00)
[2019-09-17] MEDS: FUROSEMIDE 40 MG/4 ML IV SCH ×2 (09:00→09:05)
[2019-09-17] MEDS: SODIUM CHLORIDE FLUSH 10ML SYR IVF SCH ×3 (09:00→09:06)
[2019-09-17] MEDS: INSULIN LISPRO 100 UNITS/ML, PEN SQ-INSULIN SCH (09:02)
[2019-09-17] MEDS: INSULIN GLARGINE 100 UNITS/ML, PEN SQ-INSULIN SCH (09:02)
[2019-09-17] MEDS: AMIODARONE 200 MG TABLET PO SCH (09:03)
[2019-09-17] MEDS: GABAPENTIN 300 MG CAPSULE PO SCH (09:03)
[2019-09-17] MEDS: AMLODIPINE 10 MG TAB PO SCH (09:04)
[2019-09-17] MEDS: DOCUSATE 100 MG CAPSULE PO SCH (09:04)
[2019-09-17] MEDS: ASPIRIN 81 MG TABLET EC PO SCH (09:04)
[2019-09-17] MEDS: CHOLECALCIFEROL 5,000u TAB PO SCH (09:05)
[2019-09-17] MEDS ORDERED: GABA300C10 PO (09:09)
[2019-09-17] MEDS ORDERED: OXYC5TAB3 PO (09:09)
[2019-09-17] MEDS ORDERED: LIDO700A20 TD (09:09)
[2019-09-17] MEDS ORDERED: AMIO200T42 PO (09:09)
[2019-09-17] MEDS ORDERED: METH500T7 PO (09:09)
[2019-09-17] MEDS ORDERED: TAMS-11 PO (09:09)
[2019-09-17] MEDS ORDERED: ALPR0.25 PO (09:09)
[2019-09-17] MEDS ORDERED: INSU100I34 SC (11:44)
[2019-09-17] MEDS ORDERED: CEFD300C37 PO (11:52)
== END 2019-09-17 12:12 | disposition home health service (06) | DRG 219 ==
LOC: 5SO 04:31 → CSU 07:30 → 5SO 09-13 01:21 → DCLOUNGE 09-17 11:48
PROVIDERS: ADMIT Thoracic Surgery (Cardiothoracic Vascular Surgery); ATTEND Internal Medicine
PROC: 30233M1 Transfusion of Nonautologous Plasma Cryoprecipitate into Peripheral Vein, Percutaneous Approach (ICD-10-PCS; 2019-09-06)
PROC: 0WBC0ZZ Excision of Mediastinum, Open Approach (ICD-10-PCS; 2019-09-06)
PROC: B548ZZA Ultrasonography of Superior Vena Cava, Guidance (ICD-10-PCS; 2019-09-06)
PROC: 03HY32Z Insertion of Monitoring Device into Upper Artery, Percutaneous Approach (ICD-10-PCS; 2019-09-06)
PROC: 02HV33Z Insertion of Infusion Device into Superior Vena Cava, Percutaneous Approach (ICD-10-PCS; 2019-09-06)
PROC: B24BZZ4 Ultrasonography of Heart with Aorta, Transesophageal (ICD-10-PCS; 2019-09-06)
PROC: 5A1221Z Performance of Cardiac Output, Continuous (ICD-10-PCS; 2019-09-06)
PROC: 30233R1 Transfusion of Nonautologous Platelets into Peripheral Vein, Percutaneous Approach (ICD-10-PCS; 2019-09-06)
PROC: 02RF08Z Replacement of Aortic Valve with Zooplastic Tissue, Open Approach (ICD-10-PCS; principal; 2019-09-06 07:30)
PROC: 0JB50ZZ Excision of Left Neck Subcutaneous Tissue and Fascia, Open Approach (ICD-10-PCS; 2019-09-06 07:30)
PROC: 5A1D70Z Performance of Urinary Filtration, Intermittent, Less than 6 Hours Per Day (ICD-10-PCS; 2019-09-08)
PROC: 02HV33Z Insertion of Infusion Device into Superior Vena Cava, Percutaneous Approach (ICD-10-PCS; 2019-09-08)
PROC: B548ZZA Ultrasonography of Superior Vena Cava, Guidance (ICD-10-PCS; 2019-09-08)
PROC: 30233N1 Transfusion of Nonautologous Red Blood Cells into Peripheral Vein, Percutaneous Approach (ICD-10-PCS; 2019-09-09)
PROC: 5A09357 Assistance with Respiratory Ventilation, Less than 24 Consecutive Hours, Continuous Positive Airway Pressure (ICD-10-PCS; 2019-09-09)
PROC: 5A09357 Assistance with Respiratory Ventilation, Less than 24 Consecutive Hours, Continuous Positive Airway Pressure (ICD-10-PCS; 2019-09-10)
PROC: 5A09357 Assistance with Respiratory Ventilation, Less than 24 Consecutive Hours, Continuous Positive Airway Pressure (ICD-10-PCS; 2019-09-11)
PROC: 5A09357 Assistance with Respiratory Ventilation, Less than 24 Consecutive Hours, Continuous Positive Airway Pressure (ICD-10-PCS; 2019-09-12)
PROC: 5A09357 Assistance with Respiratory Ventilation, Less than 24 Consecutive Hours, Continuous Positive Airway Pressure (ICD-10-PCS; 2019-09-13)
PROC: 5A09357 Assistance with Respiratory Ventilation, Less than 24 Consecutive Hours, Continuous Positive Airway Pressure (ICD-10-PCS; 2019-09-15)
DX: T82.857A Stenosis of other cardiac prosthetic devices, implants and grafts, initial encounter (principal); I50.33 Acute on chronic diastolic (congestive) heart failure; J96.20 Acute and chronic respiratory failure, unspecified whether with hypoxia or hypercapnia; N17.0 Acute kidney failure with tubular necrosis; D62 Acute posthemorrhagic anemia; D68.69 Other thrombophilia; E87.1 Hypo-osmolality and hyponatremia; I13.0 Hypertensive heart and chronic kidney disease with heart failure and stage 1 through stage 4 chronic kidney disease, or unspecified chronic kidney disease; I48.92 Unspecified atrial flutter; N39.0 Urinary tract infection, site not specified; Z99.11 Dependence on respirator [ventilator] status; K21.9 Gastro-esophageal reflux disease without esophagitis; G47.33 Obstructive sleep apnea (adult) (pediatric); J45.909 Unspecified asthma, uncomplicated; F17.210 Nicotine dependence, cigarettes, uncomplicated; D69.6 Thrombocytopenia, unspecified; E11.22 Type 2 diabetes mellitus with diabetic chronic kidney disease; E11.65 Type 2 diabetes mellitus with hyperglycemia; E55.9 Vitamin D deficiency, unspecified; E66.01 Morbid (severe) obesity due to excess calories; E78.5 Hyperlipidemia, unspecified; E87.5 Hyperkalemia; F32.9 Major depressive disorder, single episode, unspecified; G89.29 Other chronic pain; I25.10 Atherosclerotic heart disease of native coronary artery without angina pectoris; I48.91 Unspecified atrial fibrillation; I71.2 Thoracic aortic aneurysm, without rupture; M54.9 Dorsalgia, unspecified; I71.4 Abdominal aortic aneurysm, without rupture; K76.0 Fatty (change of) liver, not elsewhere classified; M10.9 Gout, unspecified; M19.90 Unspecified osteoarthritis, unspecified site; N18.9 Chronic kidney disease, unspecified; Y83.8 Other surgical procedures as the cause of abnormal reaction of the patient, or of later complication, without mention of misadventure at the time of the procedure; R31.0 Gross hematuria; D17.0 Benign lipomatous neoplasm of skin and subcutaneous tissue of head, face and neck; Z88.8 Allergy status to other drugs, medicaments and biological substances; Z95.5 Presence of coronary angioplasty implant and graft; Z79.01 Long term (current) use of anticoagulants; Z79.82 Long term (current) use of aspirin; Z80.0 Family history of malignant neoplasm of digestive organs; Z80.42 Family history of malignant neoplasm of prostate; Z82.49 Family history of ischemic heart disease and other diseases of the circulatory system; Z85.038 Personal history of other malignant neoplasm of large intestine; Z86.79 Personal history of other diseases of the circulatory system; Z90.49 Acquired absence of other specified parts of digestive tract; Z91.19 Patient's noncompliance with other medical treatment and regimen; Z79.899 Other long term (current) drug therapy; Y92.098 Other place in other non-institutional residence as the place of occurrence of the external cause; Z79.84 Long term (current) use of oral hypoglycemic drugs
CPT/HCPCS: 36415; 36600; 77001; J3490; J7613; S0017; 36556; 71045; 71046; 76770; 80048; 80053; 80069; 81001; 81003; 82040; 82330; 82728; 82800; 82803; 82810; 82947; 82962; 83036; 83540; 83550; 83735; 84100; 84132; 84295; 84443; 85014; 85018; 85025; 85049; 85347; 85610; 85730; 86705; 86706; 86850; 86900; 86923; 87070; 87081; 87086; 87205; 87340; 88300; 88304; 88307; 90935; 93005; 93312; 93321; 93325; 93880; 94002; 94640; 94660; C1768; G0378; J0171; J0696; J0697; J1170; J1644; J1750; J1815; J1885; J1940; J2250; J2405; J2704; J3010; J3370; J3475; J3480; J7120; P9045; P9047; C1751; C1762; J1642; J2150; J2370; J2930; J7040; J7050; P9012; P9016; P9035

== ENCOUNTER 2019-09-23 04:05 | Inpatient (IN) | payer MEDICAID ==
[~2019-09-23] VITALS: Ht 190.5 cm; Wt 149.0 kg
[~2019-09-23 04:05] MED LIST changes: +ALPR0.25 PO; +AMIO200T42 PO; +CEFD300C37 PO; +GABA300C10 PO; +LIDO700A20 TD; +METH500T7 PO; +OXYC5TAB3 PO; +TAMS-11 PO
[2019-09-23] MEDS ORDERED: ONDANSETRON 2MG/ML, 2ML ONE (04:46)
[2019-09-23] MEDS ORDERED: HYDROmorphone 1 MG/ML, 1ML INJ ONE (04:46)
[2019-09-23] MEDS ORDERED: ASPIRIN 81 MG TABLET CHEW ONE (04:53)
[2019-09-23] MEDS ORDERED: HYDROmorphone 1 MG/ML, 1ML INJ IV ONE (05:00)
[2019-09-23] MEDS ORDERED: SODIUM CHLORIDE FLUSH 10ML SYR IVF ONE ×2 (05:00→09:30)
[2019-09-23] MEDS ORDERED: ONDANSETRON 2MG/ML, 2ML IVPush ONE (05:00)
[2019-09-23] MEDS ORDERED: ASPIRIN 81 MG TABLET CHEW PO ONE (05:00)
[2019-09-23 05:10] LABS: BASOPHILS # (AUTO) 0.06 x10^3/uL (0-0.1); BASOPHILS % (AUTO) 1 % (0-1); EOSINOPHILS # (AUTO) 0.09 x10^3/uL (0-0.4); EOSINOPHILS % (AUTO) 1 % (1-7); LYMPHOCYTES % (AUTO) 10 % (22-44); MD NO; MEAN CORPUSCULAR HEMOGLOBIN 28.2 pg (27.5-34.5); MEAN CORPUSCULAR HGB CONC 32.4 g/dL (33.2-36.2); MEAN CORPUSCULAR VOLUME 87.2 fL (81-97); MEAN PLATELET VOLUME 7.4 fL (7.4-10.4); MONOCYTES # (AUTO) 0.85 x10^3/uL (0.2-0.8); MONOCYTES % (AUTO) 9 % (2-9); NEUTROPHILS # (AUTO) 7.65 x10^3/uL (1.8-6.8); NEUTROPHILS % (AUTO) 80 % (42-75); PLATELET COUNT 430 x10^3/uL (130-400); RED BLOOD COUNT 3.06 x10^6/uL (4.38-5.82); RED CELL DISTRIBUTION WIDTH 15.9 % (9.4-14.8)
--- NOTE | 2019-09-23 05:15 | NUR ---
Patient brought into room with emergency department formulation technician. RN to bedside with midlevel provider. Patient assisted into bed. Patient complains of 10/10 chest pain, had known recent bovine aortic valve replacement. RN can visualize well approximated and healed midline anterior thoracic scar. During assessment patient has multiple complaints, but patient and spouse report these are continuing with some worsening of symptoms from discharge. Patient feels constipated, reports being unable to have a good bowel movement for over a week, but is passing gas and small peices of stool. Patient's pulsatile oxygen down to 88% on room air, started on 2 L oxygen. Received orders for analgesic and antemetic medications. Intravenous access established per hospital protocol, labs drawn, sent to lab with equipment operator/laborer/supervisor, assisted in attaching patient to gambling monitor by task RN (assessment completed by task RN; reviewed by primary and agree to current charting) blood sugar obtained from iv catheter and then pigtail and saline flushed confirmed access. Patient then administered analgesic medication. semiconductor development technician to bedside, during chest xray patient's SpO2 again dipped, oxygen now at 6L nasal cannula as patient is lethargic with adminstration of medication. Patient reports relief from medications. Patient also complains of blood in urine. Patient educated on urinating with a urinal. Patient verbalized understanding, confirms knows process based on previous hospital visit. Morena declined to complete while RN was in room. Encouraged twice to provide sample as soon as possible. Awaiting CT scan.
[2019-09-23 05:19] LABS: INTERNATIONAL NORMALIZED RATIO 1.08 (0.93-1.1); PROTHROMBIN TIME 11.5 Seconds (9.6-11.5)
[2019-09-23 05:23] LABS: ALBUMIN 2.9 g/dL (3.4-5.0); ANION GAP 7 mmol/L (5-15); CALCIUM 9.2 mg/dL (8.5-10.1); CHLORIDE 108 mmol/L (98-107)
--- NOTE | 2019-09-23 05:24 | NUR ---
Emergency department laundry technician to bedside for follow up electrocardiogram.
[2019-09-23 05:28] LABS: CREATININE 1.43 mg/dL (0.7-1.3); TROPONIN I 0.087 ng/mL (0.000-0.045)
[2019-09-23] MEDS ORDERED: LORazepam 2 MG/ML, 1ML ONE (06:13)
[2019-09-23] MEDS ORDERED: LORazepam 2 MG/ML, 1ML IVPush ONE (06:30)
--- NOTE | 2019-09-23 06:34 | NUR ---
Received update from midlevel provider after patient had his imaging and lab results reviewed. Patient remains constipated, midlevel provider attempted manual disimpaction. Received orders for intravenous anxiolytics and a fleet enema. Anxiolytic provided per provider order (see electronic medicine administration record) fifteen minutes later at 0630 fleet enema provided. Patient now resting on a bed [place]. Remains lethargic. Encouraged family member at bedside to arouse patient if oxygen level dips, also reviewed call light system if patient feels like he prefers to use a different bed [place], a commode or would like to be accompanied to the bathroom. Spouse at bedsided verbalized understanding. Awaiting bowel movement and likely admission.
--- NOTE | 2019-09-23 06:54 | NUR ---
Gave report to diurnal RN. Revied patients past medical history, recent multiple complaints and interventions performed (including analgesic, anxiolytic medications and fleet enema recently given) patient remains on bed [place]. Awaiting bowel movement. Reviewed plan of care and likely admit.
--- NOTE | 2019-09-23 07:03 | NUR ---
Report received from Curtis. pt, pts spouse and daughter at bedside sleeping. VSS
--- NOTE | 2019-09-23 07:19 | NUR ---
Provider at bedside reassessing pt.
--- NOTE | 2019-09-23 08:17 | NUR ---
PT UP TO BEDSIDE COMMODE. PT ACCIDENTALLY SELF DC IV. AT BEDSIDE.
--- NOTE | 2019-09-23 08:40 | NUR ---
SUCCESSFUL BM. PT BACK IN BED INDEPENDENTLY AND PT BACK TO SLEEEP. AWAKENS EASILY WITH VOICE. COMMODE CLEANED OUT AND REMOVED FROM ROOM. NEW IV PLACED FOR ADMIT. PT TOLERATED WELL. REMAINS AT BEDSIDE. HOB TO LEVEL OF COMFORT. O2 IN PLACE, RESPIRATIONS UNLABORED WITH SOME SNORING, OXYGENATING WELL ON NC. WHEN ASKED IF PT WEARS O2 AT NIGHT, PT REPLIES THAT HE "USED TO" WEAR A CPAP. AWAITING ADMISSION ORDERS. MONITORING IN PLACE. SIDE RAILS UP, CALL LIGHT IN REACH.
[2019-09-23] MEDS ORDERED: morphine SULFATE 10 MG/ML, 1ML IVPush ONE (09:30)
--- NOTE | 2019-09-23 09:30 | NUR ---
ERMD AWARE OF PT'S CP REPORT.
--- NOTE | 2019-09-23 09:36 | NUR ---
SPOKE WITH PROVIDERS REGARDING ADMIT STATUS AND PT COMPLAINS OF 9/10 CHEST PAIN. PROVIDERS STATED PT WAS TO BE ADMITED TO [facility] TELE AND WOULD PLACE MORPHINE ORDERS FOR PAIN MANAGEMENT.
[2019-09-23] MEDS ORDERED: morphine SULFATE 10 MG/ML, 1ML ONE (09:43)
--- NOTE | 2019-09-23 09:51 | NUR ---
pt medicated per emar. pt letheragic, snoring but wakes easily. pt slightly disoriented when first woken but reorients well. per pts pt is in deeper sleep then normal but snores as a baseline when at home. Updated on POC to admit.
--- NOTE | 2019-09-23 10:25 | NUR ---
Report given to Emre on Cardiac Tele. pt to transfer to room 513. Updated pt and pts spouse. All personal belongings packed and placed on gurney with pt.
--- NOTE | 2019-09-23 11:06 | NUR ---
Dr. Martini at bedside.
[2019-09-23] MEDS ORDERED: OXYcodone IR 5MG TABLET PO PRN (11:30)
[2019-09-23] MEDS ORDERED: PROMETHAZINE 25 MG/ML, 1ML IM PRN (11:30)
[2019-09-23] MEDS ORDERED: BISACODYL 10 MG SUPP PR PRN (11:30)
[2019-09-23] MEDS ORDERED: hydrALAzine 20 MG/ML, 1ML IVPush PRN (11:30)
[2019-09-23] MEDS ORDERED: ONDANSETRON 2MG/ML, 2ML IVPush PRN (11:30)
[2019-09-23] MEDS ORDERED: TEMPLATE NON-FORMULARY MED. (Ubidecarenone/Vit E Acetate (Co Q-10 100 Mg Softgel) 1 CAP) PO SCH (11:30)
[2019-09-23] MEDS ORDERED: ONDANSETRON ODT 4 MG PO PRN (11:30)
[2019-09-23] MEDS ORDERED: POLYETHYLENE GLYCOL 17 GM PACKET PO PRN (11:30)
[2019-09-23 11:33] VITALS: BP 140/76
[2019-09-23] MEDS: CHOLECALCIFEROL 5,000u TAB PO SCH (11:46)
[2019-09-23] MEDS ORDERED: ALBUTEROL SULFATE 2.5 MG/3 ML NPPB PRN (12:00)
[2019-09-23] MEDS: PANTOPROZOLE 40MG TABLET PO SCH (12:18)
[2019-09-23] MEDS: TAMSULOSIN 0.4 MG CAP.ER.24H PO SCH (12:18)
[2019-09-23] MEDS: AMIODARONE 200 MG TABLET PO SCH ×2 (12:18→20:56)
[2019-09-23] MEDS: ASPIRIN 81 MG TABLET EC PO SCH (12:18)
[2019-09-23] MEDS: MULTIVITS,STRESS FORMULA 1 TABLET PO SCH (12:19)
[2019-09-23] MEDS: SENNA/DOCUSATE TABLET PO SCH (12:19)
[2019-09-23] MEDS: AMLODIPINE 10 MG TAB PO SCH (12:19)
[2019-09-23] MEDS: LIDODERM 5% PATCH TD SCH (12:19)
[2019-09-23] MEDS: LORATADINE 10 MG TABLET PO SCH (12:19)
[2019-09-23] MEDS: FUROSEMIDE 40 MG/4 ML IV SCH (12:19)
[2019-09-23] MEDS: POTASSIUM CHLORIDE 10 MEQ TABLET.ER PO SCH (12:19)
[2019-09-23] MEDS: GABAPENTIN 300 MG CAPSULE PO SCH ×3 (12:19→20:56)
[2019-09-23 12:20] LABS: FREE T4 (FREE THYROXINE) 1.22 ng/dL (0.76-1.46)
[2019-09-23] MEDS: HEPARIN 5,000 UNITS/ML, 1ML SQ SCH ×2 (12:20→20:56)
[2019-09-23] MEDS: INSULIN LISPRO 100 UNITS/ML, PEN SQ-INSULIN SCH ×3 (12:47→21:02)
[2019-09-23] MEDS: AMPICILLIN/SULBACTAM 3 GM in SODIUM CHLORIDE 0.9% 100 ML IV SCH ×2 (12:47→19:14)
[2019-09-23 13:27] LABS: MICROSCOPIC AUTO
[2019-09-23 14:00] VITALS: BP 116/78
[2019-09-23] MEDS ORDERED: NITROGLYCERIN 0.4 MG/SPRAY SL PRN (14:00)
[2019-09-23] MEDS: NITROGLYCERIN 0.4 MG BOTTLE (25 TABS) SL PRN ×2 (14:22→14:31)
[2019-09-23 14:28] VITALS: BP 119/76
[2019-09-23 14:35] VITALS: BP 108/68
[2019-09-23 14:38] LABS: TROPONIN I 0.076 ng/mL (0.000-0.045)
[2019-09-23] MEDS: MORPHINE SULFATE 4 MG/ML, 1ML IVPush PRN (14:38)
[2019-09-23] MEDS ORDERED: INSULIN LISPRO 100 UNITS/ML, PEN SQ-INSULIN SCH (16:00)
[2019-09-23 18:32] LABS: TROPONIN I 0.079 ng/mL (0.000-0.045)
[2019-09-23 19:40] VITALS: BP 134/94
[2019-09-23 20:10] VITALS: BP 157/88
[2019-09-23] MEDS: ATORVASTATIN 80 MG TABLET PO SCH (20:56)
[2019-09-23] MEDS ORDERED: CEFDINIR 300 MG CAPSULE PO SCH (21:00)
[2019-09-23] MEDS ORDERED: INSULIN GLARGINE 100 UNITS/ML, PEN SQ-INSULIN SCH (21:00)
[2019-09-24] VITALS (7 sets, daily range): BP systolic 116–142; BP diastolic 74–83
[2019-09-24] MEDS: AMPICILLIN/SULBACTAM 3 GM in SODIUM CHLORIDE 0.9% 100 ML IV SCH ×4 (00:13→19:42)
[2019-09-24] MEDS: FUROSEMIDE 40 MG/4 ML IV SCH ×3 (00:34→23:45)
[2019-09-24] MEDS: MORPHINE SULFATE 4 MG/ML, 1ML IVPush PRN ×2 (02:12→03:09)
[2019-09-24] MEDS: HEPARIN 5,000 UNITS/ML, 1ML SQ SCH ×3 (04:04→20:44)
[2019-09-24 04:45] LABS: BASOPHILS # (AUTO) 0.01 x10^3/uL (0-0.1); BASOPHILS % (AUTO) 0 % (0-1); EOSINOPHILS # (AUTO) 0.27 x10^3/uL (0-0.4); EOSINOPHILS % (AUTO) 4 % (1-7); LYMPHOCYTES # (AUTO) 1.11 x10^3/uL (1-3.4); LYMPHOCYTES % (AUTO) 16 % (22-44); MD NO; MEAN CORPUSCULAR HEMOGLOBIN 28.3 pg (27.5-34.5); MEAN CORPUSCULAR HGB CONC 32.2 g/dL (33.2-36.2); MEAN CORPUSCULAR VOLUME 87.9 fL (81-97); MEAN PLATELET VOLUME 7.7 fL (7.4-10.4); MONOCYTES # (AUTO) 0.89 x10^3/uL (0.2-0.8); MONOCYTES % (AUTO) 13 % (2-9); NEUTROPHILS # (AUTO) 4.76 x10^3/uL (1.8-6.8); NEUTROPHILS % (AUTO) 68 % (42-75); PLATELET COUNT 400 x10^3/uL (130-400); RED BLOOD COUNT 2.96 x10^6/uL (4.38-5.82); RED CELL DISTRIBUTION WIDTH 16.7 % (9.4-14.8)
[2019-09-24 04:47] LABS: CHLORIDE 109 mmol/L (98-107)
[2019-09-24 05:00] LABS: ALBUMIN 2.7 g/dL (3.4-5.0); ANION GAP 6 mmol/L (5-15)
[2019-09-24 05:06] LABS: ALANINE AMINOTRANSFERASE 37 U/L (12-78); ALKALINE PHOSPHATASE 183 U/L (45-117); BILIRUBIN,TOTAL 0.6 mg/dL (0.2-1.0); CHOL/HDL RATIO 1.8; CHOLESTEROL, TOTAL 98 mg/dL (140-239); HDL CHOL % 54 % (26-37); HDL CHOLESTEROL (DIRECT) 53 mg/dL (40-60); LDL CHOLESTEROL,CALCULATED 34 mg/dL (54-169); LDL/HDL RATIO 0.6 (0.5-3.0); TOTAL PROTEIN 7.3 g/dL (6.4-8.2); TRIGLYCERIDES 55 mg/dL (50-200); VLDL CHOLESTEROL 11 mg/dL (0-25)
[2019-09-24] MEDS: INSULIN LISPRO 100 UNITS/ML, PEN SQ-INSULIN SCH ×4 (07:09→21:36)
[2019-09-24] MEDS: OXYcodone IR 5MG TABLET PO PRN ×4 (07:53→23:45)
[2019-09-24] MEDS: LORATADINE 10 MG TABLET PO SCH (09:48)
[2019-09-24] MEDS: CHOLECALCIFEROL 5,000u TAB PO SCH (09:48)
[2019-09-24] MEDS: MULTIVITS,STRESS FORMULA 1 TABLET PO SCH (09:49)
[2019-09-24] MEDS: POTASSIUM CHLORIDE 10 MEQ TABLET.ER PO SCH (09:49)
[2019-09-24] MEDS: GABAPENTIN 300 MG CAPSULE PO SCH ×3 (09:49→20:44)
[2019-09-24] MEDS: TAMSULOSIN 0.4 MG CAP.ER.24H PO SCH (09:49)
[2019-09-24] MEDS: AMLODIPINE 10 MG TAB PO SCH (09:49)
[2019-09-24] MEDS: ASPIRIN 81 MG TABLET EC PO SCH (09:49)
[2019-09-24] MEDS: PANTOPROZOLE 40MG TABLET PO SCH (09:49)
[2019-09-24] MEDS: SENNA/DOCUSATE TABLET PO SCH (09:49)
[2019-09-24] MEDS: METHOCARBAMOL 500 MG TABLET PO PRN ×2 (09:49→16:10)
[2019-09-24] MEDS: AMIODARONE 200 MG TABLET PO SCH ×2 (09:50→20:44)
[2019-09-24] MEDS: LIDODERM 5% PATCH TD SCH (11:30)
[2019-09-24] MEDS: FERROUS GLUCONATE 324 MG TABLET PO SCH (17:26)
[2019-09-24] MEDS: ATORVASTATIN 80 MG TABLET PO SCH (20:44)
[2019-09-25] MEDS: AMPICILLIN/SULBACTAM 3 GM in SODIUM CHLORIDE 0.9% 100 ML IV SCH ×4 (01:45→23:44)
[2019-09-25] MEDS: METHOCARBAMOL 500 MG TABLET PO PRN ×2 (02:08→17:27)
[2019-09-25] MEDS: HEPARIN 5,000 UNITS/ML, 1ML SQ SCH ×3 (04:30→20:23)
[2019-09-25 05:45] LABS: ANION GAP 6 mmol/L (5-15); CALCIUM 8.9 mg/dL (8.5-10.1); CHLORIDE 104 mmol/L (98-107)
[2019-09-25 05:47] LABS: CREATININE 1.48 mg/dL (0.7-1.3)
[2019-09-25 05:55] LABS: BASOPHILS # (AUTO) 0.06 x10^3/uL (0-0.1); BASOPHILS % (AUTO) 1 % (0-1); EOSINOPHILS # (AUTO) 0.26 x10^3/uL (0-0.4); EOSINOPHILS % (AUTO) 4 % (1-7); LYMPHOCYTES # (AUTO) 1.37 x10^3/uL (1-3.4); LYMPHOCYTES % (AUTO) 23 % (22-44); MD NO; MEAN CORPUSCULAR HEMOGLOBIN 27.8 pg (27.5-34.5); MEAN CORPUSCULAR HGB CONC 31.6 g/dL (33.2-36.2); MEAN CORPUSCULAR VOLUME 88.1 fL (81-97); MEAN PLATELET VOLUME 7.7 fL (7.4-10.4); MONOCYTES # (AUTO) 0.93 x10^3/uL (0.2-0.8); MONOCYTES % (AUTO) 16 % (2-9); NEUTROPHILS % (AUTO) 56 % (42-75); PLATELET COUNT 431 x10^3/uL (130-400); RED BLOOD COUNT 3.04 x10^6/uL (4.38-5.82); RED CELL DISTRIBUTION WIDTH 16.3 % (9.4-14.8)
[2019-09-25] MEDS: OXYcodone IR 5MG TABLET PO PRN ×3 (06:10→20:05)
[2019-09-25 08:20] VITALS: BP 120/77
[2019-09-25] MEDS: GABAPENTIN 300 MG CAPSULE PO SCH ×3 (08:56→20:24)
[2019-09-25] MEDS: FUROSEMIDE 40 MG/4 ML IV SCH ×2 (08:56→20:27)
[2019-09-25] MEDS: TAMSULOSIN 0.4 MG CAP.ER.24H PO SCH (08:57)
[2019-09-25] MEDS: ASPIRIN 81 MG TABLET EC PO SCH (08:57)
[2019-09-25] MEDS: CHOLECALCIFEROL 5,000u TAB PO SCH (08:57)
[2019-09-25] MEDS: PANTOPROZOLE 40MG TABLET PO SCH (08:57)
[2019-09-25] MEDS: AMIODARONE 200 MG TABLET PO SCH ×2 (08:57→20:24)
[2019-09-25] MEDS: AMLODIPINE 10 MG TAB PO SCH (08:57)
[2019-09-25] MEDS: LORATADINE 10 MG TABLET PO SCH (08:57)
[2019-09-25] MEDS: FERROUS GLUCONATE 324 MG TABLET PO SCH ×2 (08:58→16:20)
[2019-09-25] MEDS: MULTIVITS,STRESS FORMULA 1 TABLET PO SCH (08:58)
[2019-09-25] MEDS: POTASSIUM CHLORIDE 10 MEQ TABLET.ER PO SCH (08:58)
[2019-09-25] MEDS: INSULIN LISPRO 100 UNITS/ML, PEN SQ-INSULIN SCH ×4 (08:59→20:25)
[2019-09-25] MEDS: SENNA/DOCUSATE TABLET PO SCH (12:28)
[2019-09-25] MEDS: LIDODERM 5% PATCH TD SCH (12:28)
[2019-09-25] MEDS: INSULIN GLARGINE 100 UNITS/ML, PEN SQ-INSULIN SCH ×2 (12:30→20:26)
[2019-09-25 13:48] VITALS: BP 136/89
[2019-09-25 19:33] VITALS: BP 126/78
[2019-09-25] MEDS: ATORVASTATIN 80 MG TABLET PO SCH (20:24)
[2019-09-26] MEDS: METHOCARBAMOL 500 MG TABLET PO PRN ×2 (00:01→13:30)
[2019-09-26] MEDS: ACETAMINOPHEN 325 MG TABLET PO PRN ×2 (00:01→13:30)
[2019-09-26 00:36] VITALS: BP 126/78
[2019-09-26] MEDS: OXYcodone IR 5MG TABLET PO PRN ×3 (02:11→14:50)
[2019-09-26 05:05] LABS: CALCIUM 8.6 mg/dL (8.5-10.1); CHLORIDE 106 mmol/L (98-107)
[2019-09-26 05:09] LABS: ANION GAP 6 mmol/L (5-15); CREATININE 1.43 mg/dL (0.7-1.3)
[2019-09-26] MEDS: HEPARIN 5,000 UNITS/ML, 1ML SQ SCH ×2 (05:24→11:02)
[2019-09-26] MEDS: AMPICILLIN/SULBACTAM 3 GM in SODIUM CHLORIDE 0.9% 100 ML IV SCH ×3 (05:24→17:00)
[2019-09-26 07:25] VITALS: BP 125/75
[2019-09-26] MEDS: MULTIVITS,STRESS FORMULA 1 TABLET PO SCH (08:09)
[2019-09-26] MEDS: PANTOPROZOLE 40MG TABLET PO SCH (08:09)
[2019-09-26] MEDS: SENNA/DOCUSATE TABLET PO SCH (08:09)
[2019-09-26] MEDS: GABAPENTIN 300 MG CAPSULE PO SCH ×2 (08:10→16:01)
[2019-09-26] MEDS: TAMSULOSIN 0.4 MG CAP.ER.24H PO SCH (08:10)
[2019-09-26] MEDS: LORATADINE 10 MG TABLET PO SCH (08:10)
[2019-09-26] MEDS: FERROUS GLUCONATE 324 MG TABLET PO SCH ×2 (08:10→17:25)
[2019-09-26] MEDS: AMLODIPINE 10 MG TAB PO SCH (08:10)
[2019-09-26] MEDS: ASPIRIN 81 MG TABLET EC PO SCH (08:10)
[2019-09-26] MEDS: POTASSIUM CHLORIDE 10 MEQ TABLET.ER PO SCH (08:10)
[2019-09-26] MEDS: CHOLECALCIFEROL 5,000u TAB PO SCH (08:10)
[2019-09-26] MEDS: AMIODARONE 200 MG TABLET PO SCH (08:10)
[2019-09-26] MEDS: INSULIN LISPRO 100 UNITS/ML, PEN SQ-INSULIN SCH ×4 (08:11→17:26)
[2019-09-26] MEDS ORDERED: INSULIN GLARGINE 100 UNITS/ML, PEN SQ-INSULIN SCH (09:00)
[2019-09-26] MEDS ORDERED: FUROSEMIDE 40 MG/4 ML IV SCH (09:00)
[2019-09-26] MEDS: LIDODERM 5% PATCH TD SCH (11:01)
[2019-09-26 13:25] VITALS: BP 116/71
[2019-09-26] MEDS ORDERED: AMOX1TAB64 PO (17:36)
== END 2019-09-26 18:03 | disposition home or self-care (01) | DRG 177 ==
LOC: ED 05:06 → EDIP 09:20 → 5SO 10:29
PROVIDERS: ADMIT Internal Medicine; ATTEND Hospitalist
DX: J69.0 Pneumonitis due to inhalation of food and vomit (principal); J96.01 Acute respiratory failure with hypoxia; N17.0 Acute kidney failure with tubular necrosis; E66.9 Obesity, unspecified; E78.5 Hyperlipidemia, unspecified; F32.9 Major depressive disorder, single episode, unspecified; G47.33 Obstructive sleep apnea (adult) (pediatric); G89.29 Other chronic pain; I11.0 Hypertensive heart disease with heart failure; I25.10 Atherosclerotic heart disease of native coronary artery without angina pectoris; K21.9 Gastro-esophageal reflux disease without esophagitis; K59.03 Drug induced constipation; K76.0 Fatty (change of) liver, not elsewhere classified; I50.9 Heart failure, unspecified; D50.0 Iron deficiency anemia secondary to blood loss (chronic); M54.9 Dorsalgia, unspecified; E11.65 Type 2 diabetes mellitus with hyperglycemia; R31.9 Hematuria, unspecified; M10.9 Gout, unspecified; T40.605A Adverse effect of unspecified narcotics, initial encounter; Y92.89 Other specified places as the place of occurrence of the external cause; Z82.49 Family history of ischemic heart disease and other diseases of the circulatory system; Z90.49 Acquired absence of other specified parts of digestive tract; Z85.038 Personal history of other malignant neoplasm of large intestine; Z95.5 Presence of coronary angioplasty implant and graft; Z95.2 Presence of prosthetic heart valve; Z80.0 Family history of malignant neoplasm of digestive organs; Z79.4 Long term (current) use of insulin
CPT/HCPCS: 36415; 74230; 84145; 99285; C8929; 71045; 80048; 80053; 80061; 81001; 82040; 82962; 83036; 83735; 83880; 84439; 84443; 84484; 85025; 85610; 87070; 87205; 93005; 94640; G0378; J0295; J1170; J1644; J1940; J2405; Q9957; J1815; J2060; J2270

== ENCOUNTER 2019-10-07 15:07 | Emergency (ER) | payer MEDICAID ==
[~2019-10-07] VITALS: Ht 190.5 cm; Wt 147.8 kg
--- NOTE | 2019-10-07 15:54 | NUR ---
NA X 1
[2019-10-07 16:03] LABS: MEAN CORPUSCULAR HGB CONC 31.4 g/dL (33.2-36.2); MEAN CORPUSCULAR VOLUME 86.1 fL (81-97); MEAN PLATELET VOLUME 7.3 fL (7.4-10.4); PLATELET COUNT 297 x10^3/uL (130-400); RED BLOOD COUNT 3.61 x10^6/uL (4.38-5.82)
[2019-10-07 16:12] LABS: ALANINE AMINOTRANSFERASE 44 U/L (12-78); ANION GAP 6 mmol/L (5-15); CALCIUM 8.9 mg/dL (8.5-10.1); CHLORIDE 111 mmol/L (98-107); CREATININE 1.09 mg/dL (0.7-1.3)
[2019-10-07 16:17] LABS: ALKALINE PHOSPHATASE 196 U/L (45-117); BILIRUBIN,TOTAL 0.4 mg/dL (0.2-1.0); TOTAL PROTEIN 7.3 g/dL (6.4-8.2); TROPONIN I 0.063 ng/mL (0.000-0.045)
--- NOTE | 2019-10-07 16:24 | NUR ---
OPEN TENTER OPERATOR: PT TO ROOM FROM LOBBY VIA WHEELCHAIR.
[2019-10-07 16:41] LABS: BASOPHILS # (AUTO) 0.05 x10^3/uL (0-0.1); BASOPHILS % (AUTO) 1 % (0-1); EOSINOPHILS # (AUTO) 0.24 x10^3/uL (0-0.4); EOSINOPHILS % (AUTO) 4 % (1-7); LYMPHOCYTES # (AUTO) 1.57 x10^3/uL (1-3.4); LYMPHOCYTES % (AUTO) 28 % (22-44); MD SCAN; MONOCYTES # (AUTO) 0.52 x10^3/uL (0.2-0.8); MONOCYTES % (AUTO) 9 % (2-9); NEUTROPHILS % (AUTO) 58 % (42-75)
[2019-10-07] MEDS ORDERED: HYDROcodone/APAP 5/325 TABLET PO STA (17:19)
[2019-10-07] MEDS ORDERED: HYDROcodone/APAP 5/325 TABLET ONE (17:34)
--- NOTE | 2019-10-07 18:45 | NUR ---
LAB AT BEDSIDE VSS ON HOUSE CARPENTER HELPER
--- NOTE | 2019-10-07 18:50 | NUR ---
PAIN IMPROVED TO 2/10 NO CHANGE IN VITALS ON FIRE CAPTAIN NOR INCREASE IN WOB UPDATED ON IMPORTANCE OF CONTINUED AGGRESSIVE PULMONARY HYGIENE
[2019-10-07 19:12] VITALS: BP 139/78
== END 2019-10-07 19:34 | disposition home or self-care (01) ==
LOC: ED 19:30
DX: S20.219A Contusion of unspecified front wall of thorax, initial encounter (principal); R07.2 Precordial pain; I11.0 Hypertensive heart disease with heart failure; I50.9 Heart failure, unspecified; I25.10 Atherosclerotic heart disease of native coronary artery without angina pectoris; I25.2 Old myocardial infarction; K21.9 Gastro-esophageal reflux disease without esophagitis; M10.9 Gout, unspecified; W19.XXXA Unspecified fall, initial encounter; Y93.89 Activity, other specified; Y92.89 Other specified places as the place of occurrence of the external cause; Y99.8 Other external cause status
CPT/HCPCS: 36415; 71046; 72072; 80053; 84484; 85025; 93005; 99285

== ENCOUNTER → 2020-03-20 | Outpatient (CLI) | payer MEDICAID ==
[~2020-03-20] MED LIST changes: +GABA600T7 PO
== END | disposition home or self-care (01) ==
LOC: STAR 09:39
PROVIDERS: ATTEND Student in an Organized Health Care Education/Training Program
DX: Z01.818 Encounter for other preprocedural examination (principal); N32.89 Other specified disorders of bladder; I44.0 Atrioventricular block, first degree
CPT/HCPCS: 93005

== ENCOUNTER 2020-03-25 05:41 | Day surgery (SDC) | payer MEDICAID ==
[~2020-03-25] VITALS: Ht 190.5 cm; Wt 134.0 kg
[2020-03-25] MEDS ORDERED: LACTATED RINGERS 1,000 ML IV SCH (06:37)
[2020-03-25 06:38] VITALS: BP 150/88
[2020-03-25] MEDS ORDERED: CHLORHEXIDINE 15 ML UDC MM ONE (07:00)
[2020-03-25] MEDS ORDERED: LIDOCAINE-MPF 1%, 2ML INFIL ONE (07:00)
[2020-03-25] MEDS ORDERED: FENTANYL PF 100 MCG/2ML ONE ×2 (07:24→08:19)
[2020-03-25] MEDS ORDERED: CEFAZOLIN 1,000 MG ONE (07:51)
[2020-03-25] MEDS ORDERED: PROPOFOL 10 MG/ML, 20ML ONE (07:51)
[2020-03-25] MEDS ORDERED: ONDANSETRON 2MG/ML, 2ML ONE (07:51)
[2020-03-25] MEDS ORDERED: ROCURONIUM 10MG/ML,5ML ONE (07:51)
[2020-03-25] MEDS ORDERED: GLYCOPYRROLATE 0.2MG/1ML, 5ML ONE (07:51)
[2020-03-25] MEDS ORDERED: NEOSTIGMINE 1 MG/ML, 10ML ONE (07:51)
[2020-03-25] MEDS ORDERED: SUCCINYLCHOLINE 20 MG/ML, 10ML ONE (07:51)
[2020-03-25] MEDS ORDERED: DEXAMETHASONE 4 MG/ML, 1ML ONE (07:51)
[2020-03-25] MEDS ORDERED: ACETAMINOPHEN 325 MG TABLET PO PRN (08:00)
[2020-03-25] MEDS ORDERED: PROMETHAZINE 25 MG/ML, 1ML IV PRN (08:00)
[2020-03-25] MEDS ORDERED: HYDROmorphone 2 MG/ML, 1ML IVPush PRN (08:00)
[2020-03-25] MEDS ORDERED: MEPERIDINE/PF 25MG/0.5ML IVPush PRN (08:00)
[2020-03-25] MEDS ORDERED: hydrALAzine 20 MG/ML, 1ML IV PRN (08:00)
[2020-03-25] MEDS ORDERED: DIAZEPAM 5 MG/ML, 2ML IVPush PRN (08:00)
[2020-03-25] MEDS ORDERED: ALBUTEROL SULFATE 2.5 MG/3 ML NPPB PRN (08:00)
[2020-03-25] MEDS ORDERED: LABETALOL 5MG/ML, 20ML IV PRN (08:00)
[2020-03-25] MEDS: FENTANYL PF 100 MCG/2ML IV PRN ×2 (08:22→08:36)
[2020-03-25] MEDS ORDERED: OXYcodone 5 MG/5 ML ORAL.SOL UDC ONE (08:40)
[2020-03-25] MEDS ORDERED: ACETAMINOPHEN 650 MG/20.3 ML UDC ONE (08:40)
[2020-03-25] MEDS: OXYcodone 5 MG/5 ML ORAL.SOL UDC PO PRN ×2 (08:43→09:17)
[2020-03-25] MEDS ORDERED: PHENAZOPYRIDINE 200 MG TABLET ONE (09:14)
[2020-03-25] MEDS ORDERED: PHENAZOPYRIDINE 200 MG TABLET PO ONE (09:30)
== END 2020-03-25 10:58 | disposition home or self-care (01) ==
LOC: OUT 05:41
PROVIDERS: ATTEND Student in an Organized Health Care Education/Training Program
DX: N32.89 Other specified disorders of bladder (principal); N30.80 Other cystitis without hematuria; E11.9 Type 2 diabetes mellitus without complications; E78.00 Pure hypercholesterolemia, unspecified; I10 Essential (primary) hypertension; E66.9 Obesity, unspecified; F12.90 Cannabis use, unspecified, uncomplicated; Z88.8 Allergy status to other drugs, medicaments and biological substances; Z79.899 Other long term (current) drug therapy; Z87.891 Personal history of nicotine dependence; Z79.4 Long term (current) use of insulin; Z79.84 Long term (current) use of oral hypoglycemic drugs; Z68.36 Body mass index [BMI] 36.0-36.9, adult; Z79.82 Long term (current) use of aspirin; Z72.89 Other problems related to lifestyle; Z85.038 Personal history of other malignant neoplasm of large intestine; Z82.49 Family history of ischemic heart disease and other diseases of the circulatory system; Z83.3 Family history of diabetes mellitus; Z98.890 Other specified postprocedural states
CPT/HCPCS: 52204; 82962; 88305; J0690; J2405; J2704; J3010; J7120; 36415; 87635; J1100; J2710; J0330

== ENCOUNTER → 2020-04-10 | Outpatient (CLI) | payer MEDICAID | END | disposition home or self-care (01) | LOC: CVU 12:43 | PROVIDERS: ATTEND Internal Medicine Cardiovascular Disease | DX: I11.9 Hypertensive heart disease without heart failure (principal); R07.9 Chest pain, unspecified; I25.10 Atherosclerotic heart disease of native coronary artery without angina pectoris | CPT/HCPCS: C8929; Q9957 ==

== ENCOUNTER → 2020-05-13 | Outpatient (CLI) | payer MEDICAID ==
[~2020-05-13] MED LIST changes: +OMNIPAQUE 350 MG/ML, 100ML BOTTLE ONE; -PANT40TA5 PO; +PANT40TA6 PO
== END | disposition home or self-care (01) ==
LOC: CFH 12:47
PROVIDERS: ATTEND Internal Medicine
DX: C18.9 Malignant neoplasm of colon, unspecified (principal); I25.10 Atherosclerotic heart disease of native coronary artery without angina pectoris; E04.1 Nontoxic single thyroid nodule
CPT/HCPCS: 71260; 74177; Q9967

== ENCOUNTER 2021-01-27 19:52 | Emergency (ER) | payer MEDICAID ==
[~2021-01-27] VITALS: Ht 188 cm; Wt 127.0 kg
[~2021-01-27 19:52] MED LIST changes: +AMLO-211 PO; -AMLO10TA8 PO; -LISI40TA PO; +LISI40TA9 PO; +METH-639 PO; -METH500T7 PO; -OMNIPAQUE 350 MG/ML, 100ML BOTTLE ONE; -OXYC-302 PO; +OXYC1TAB14 PO; -OXYC5TAB3 PO; +OXYC5TAB98 PO
--- NOTE | 2021-01-27 20:40 | NUR ---
PT BIB EMS, PT HAVING DIZZINESS FOR OVER A WEEK, HAS A MONITOR PLACED BY BLEACHER LARD. PT STATES HAVING LEFT SIDED AB PAIN AND IS NAUSEAS. RECIEVED 4MG ZOFRAN AND 100 MCG FETYNAL ENROUTE, PT ABLE TO AMBULATE STEADY INTO [facility]. PT PLACED ON ALL MONITORS, EKG DONE UPON ARRIVAL, AT BEDSIDE. ERP TO JEREMI
[2021-01-27] MEDS ORDERED: ONDANSETRON 2MG/ML, 2ML ONE (20:56)
[2021-01-27] MEDS ORDERED: MORPHINE SULFATE 4 MG/ML, 1ML ONE ×2 (20:57→23:07)
[2021-01-27] MEDS ORDERED: ONDANSETRON 2MG/ML, 2ML IVPush ONE (21:00)
[2021-01-27] MEDS: MORPHINE SULFATE 4 MG/ML, 1ML IVPush PRN ×2 (21:02→23:10)
[2021-01-27 21:34] LABS: BASOPHILS % (AUTO) 1 % (0-1); EOSINOPHILS % (AUTO) 3 % (1-7); LYMPHOCYTES % (AUTO) 27 % (22-44); MEAN CORPUSCULAR HEMOGLOBIN 30.6 pg (27.5-34.5); MEAN PLATELET VOLUME 7.6 fL (7.4-10.4); MONOCYTES % (AUTO) 8 % (2-9); NEUTROPHILS % (AUTO) 61 % (42-75); PLATELET COUNT 209 x10^3/uL (130-400); RED BLOOD COUNT 4.36 x10^6/uL (4.38-5.82); RED CELL DISTRIBUTION WIDTH 13.7 % (9.4-14.8)
[2021-01-27 21:36] LABS: MD NO
[2021-01-27 21:46] LABS: ALBUMIN 3.4 g/dL (3.4-5.0); ANION GAP 6 mmol/L (5-15); CALCIUM 8.6 mg/dL (8.5-10.1); CHLORIDE 104 mmol/L (98-107)
[2021-01-27 21:52] LABS: ALANINE AMINOTRANSFERASE 29 U/L (12-78); ALKALINE PHOSPHATASE 109 U/L (45-117); BILIRUBIN,TOTAL 0.3 mg/dL (0.2-1.0); TOTAL PROTEIN 7.2 g/dL (6.4-8.2); TROPONIN I < 0.015 ng/mL (0.000-0.045)
--- NOTE | 2021-01-27 22:29 | NUR ---
PT TO CT
[2021-01-27] MEDS ORDERED: OMNIPAQUE 350 MG/ML, 150 ML BOTTLE ONE (22:42)
--- NOTE | 2021-01-27 23:21 | NUR ---
PT MEDICATED FOR PAIN, AWAITING CT RESULTS, NO OTHER NEEDS AT THIS TIME
[2021-01-28] MEDS ORDERED: MAALOX/HYOSCYAMINE/LIDOCAINE 45 ML BTL ONE (00:16)
[2021-01-28] MEDS ORDERED: MAALOX/HYOSCYAMINE/LIDOCAINE 45 ML BTL PO ONE (00:30)
[2021-01-28] MEDS ORDERED: ONDANSETRON ODT 4 MG ONE (00:34)
[2021-01-28] MEDS ORDERED: HYDROcodone/APAP 10/325 MG TABLET ONE (00:34)
[2021-01-28] MEDS ORDERED: ONDANSETRON ODT 4 MG PO ONE (01:00)
[2021-01-28] MEDS ORDERED: HYDROcodone/APAP 10/325 MG TABLET PO ONE (01:00)
[2021-01-28 01:03] VITALS: BP 137/63
== END 2021-01-28 01:16 | disposition home or self-care (01) ==
LOC: ED 21:11
DX: R10.13 Epigastric pain (principal); R42 Dizziness and giddiness; R11.0 Nausea; I10 Essential (primary) hypertension; E11.9 Type 2 diabetes mellitus without complications
CPT/HCPCS: 36415; 71045; 74177; 80053; 83690; 83880; 84484; 85025; 93005; 96374; 96375; 96376; 99285; J2270; J2405; Q0162; Q9967